=== PATIENT | female | born 1935 | race Caucasian/White ===

== ENCOUNTER 2016-06-04 12:54 | Inpatient (IN) | payer MEDICARE ==
[~2016-06-04] VITALS: Ht 157.5 cm; Wt 78.1 kg
[~2016-06-04 12:54] MED LIST: ACET500T68 PO; AMIT100T PO; ATOR20TA58 PO; CALC667C6 PO; CETI10TA16 PO; CLOP75TA PO; FENO54TA PO; FURO80TA3 PO; HYDR-2678 PO; Hydrocodone/Acetaminophen PO; INSU100I13 SQ; INSU100V SQ; LISI40TA PO; OMEP40CA5 PO; PANT40TA5 PO; VANC500V IV
[2016-06-04 14:35] VITALS: BP 184/72
[2016-06-04] MEDS ORDERED: MAG HYDROX/AL HYDROX/SIMETH 30 ML ORAL.SUSP PO PRN (15:15)
[2016-06-04] MEDS ORDERED: OXYCODONE IR 5 MG TABLET. PO PRN (15:15)
[2016-06-04] MEDS ORDERED: MORPHINE SULFATE 2 MG/ML DISP.SYRIN. IV PRN (15:15)
[2016-06-04] MEDS ORDERED: CALCIUM CARBONATE 500 MG TAB.CHEW PO PRN (15:15)
[2016-06-04] MEDS ORDERED: MAGNESIUM HYDROXIDE 2,400 MG/30 ML ORAL.SUSP. PO PRN (15:15)
[2016-06-04] MEDS ORDERED: PROCHLORPERAZINE 10 MG/2 ML VIAL. IV PRN (15:15)
[2016-06-04] MEDS ORDERED: BISACODYL 10 MG SUPP.RECT PR PRN (15:15)
[2016-06-04] MEDS ORDERED: LACTULOSE 20 GM/30 ML SOLUTION. PO PRN (15:15)
[2016-06-04] MEDS ORDERED: ONDANSETRON PF 4 MG/2 ML VIAL. IV PRN (15:15)
[2016-06-04] MEDS ORDERED: PROCHLORPERAZINE 25 MG SUPP.RECT. PR PRN (15:15)
[2016-06-04] MEDS ORDERED: AMLO10TA4 PO (15:25)
[2016-06-04] MEDS ORDERED: AZIL80TA PO (15:25)
[2016-06-04] MEDS ORDERED: DEXTROSE 50% 25 GM / 50ML DISP.SYRIN. IV PRN (15:30)
[2016-06-04] MEDS ORDERED: FLUT9.9S NS (15:32)
[2016-06-04] MEDS ORDERED: BIFI1CAP PO (15:32)
[2016-06-04] MEDS ORDERED: LEVO75TA5 PO (15:32)
[2016-06-04] MEDS ORDERED: HYDR-2868 PO (15:32)
[2016-06-04] MEDS ORDERED: FLUT1DIS3 IH (15:32)
[2016-06-04] MEDS ORDERED: ESCI10TA PO (15:32)
[2016-06-04] MEDS ORDERED: INSU100I11 SQ (15:32)
[2016-06-04] MEDS ORDERED: FOLI1TAB16 PO (15:32)
[2016-06-04] MEDS ORDERED: IPRA3AMP NEB (15:32)
[2016-06-04] MEDS ORDERED: OMEP20CA9 PO (15:32)
--- NOTE | 2016-06-04 15:50 | PDOC1 ---
History and Physical Date of Admission Date of Admission DATE: 06/04/16 TIME: 15:28 Identification/Chief Complaint Chief Complaint SOA, transfer from [place] Source Source: Chart review, Patient History of Present Illness History of Present Illness 80 y./o Female [facility] cards, She went [facility], has been on HD MWF x 10 yrs, pt of Dr. Anthony, CXR shows modest bilateral pleurale ffusion with trop of 0.11 in this HD pt, SHe denies any CP, hemodynamcially stable. Was more concerned about what sounds like her anemia, Hgb 9.8,c lzims it dropped from a 10 plus, creatinine is 3, EKG is reassuring, pt denies any sxs,. Home meds being resumed. Past Medical History Cardiovascular: CAD, HTN, Hyperlipidemia GI: Other Heme/Onc: Anemia NOS Musculoskeletal: Muscle atrophy, Weakness Renal/: Chronic renal failure Endocrine: Diabetes, Hyperparathyroidism Past Surgical History Past Surgical History: Tonsillectomy Family History Family History: No Significant Social History Smoke: No ALCOHOL: none Drugs: None Current Problem List Problem List Problems Medical Problems: (1) ESRD (end stage renal disease) Status: Acute Problems: Current Medications Current Medications Current Medications Ondansetron HCl (Zofran) 4 mg PRN Q6HRS PRN IV NAUSEA/VOMITING, 1ST CHOICE; Start 06/04/16 at 15:15 Prochlorperazine Edisylate (Compazine) 10 mg PRN Q6HRS PRN IV NAUSEA/VOMITING, 2ND CHOICE; Start 06/04/16 at 15:15 Prochlorperazine (Compazine) 25 mg PRN Q12HR PRN TX NAUSEA/VOMITING; Start at 15:15 Al Hydroxide/Mg Hydroxide (Mylanta Plus Xs) 30 ml PRN Q3HRS PRN PO HEARTBURN / GAS; Start 06/04/16 at 15:15 Calcium Carbonate/ Glycine (Tums) 500 mg PRN Q3HRS PRN PO UPSET STOMACH; Start 06/04/16 at 15:15 Oxycodone HCl (Roxicodone) 5 mg PRN Q3HRS PRN PO BREAKTHROUGH PAIN; Start 06/04 at 15:15 Morphine Sulfate 1 mg PRN Q1HR PRN IV PAIN; Start 06/04/16 at 15:15 Docusate Sodium (Colace) 100 mg BID PO ; Start 06/04/16 at 21:00 Magnesium Hydroxide (Milk Of Magnesia) 2,400 mg PRN Q12HR PRN PO CONSTIPATION; Start 06/04/16 at 15:15 Lactulose 20 gm PRN Q12HR PRN PO CONSTIPATION; Start 06/04/16 at 15:15 Bisacodyl (Dulcolax Supp) 10 mg PRN DAILY PRN TX CONSTIPATION; Start 06/04/16 at 15:15 Heparin Sodium (Porcine) 5,000 unit Q12HR SQ ; Start 06/04/16 at 21:00 Insulin Aspart (Novolog) 0-9 UNITS TIDWMEALS SQ ; Start 06/04/16 at 17:00 Dextrose 12.5 gm PRN Q15MIN PRN IV SEE COMMENTS; Start 06/04/16 at 15:30 Active Scripts Active Lortab 5-325 mg Tablet (Hydrocodone/Acetaminophen) 1 Each Tablet 1 Tab PO PRN Q6HRS PRN Reported Edarbi (Azilsartan Medoxomil) 80 Mg Tablet 80 Mg PO DAILY Norvasc (Amlodipine Besylate) 10 Mg Tablet 10 Mg PO DAILY Omeprazole 40 Mg Capsule.dr 1 Cap PO DAILY Humalog (Insulin Lispro) 100 Unit/1 Ml Vial 20 SQ TIDAC pt states she uses a sliding scale also Lantus Solostar (Insulin Glargine,Hum.rec.anlog) 100 Unit/1 Ml Insuln.pen 10 Unit SQ HS Clopidogrel (Clopidogrel Bisulfate) 75 Mg Tablet 75 Mg PO DAILY Phoslo (Calcium Acetate) 667 Mg Capsule 667 Mg PO TID Allergies Allergies: Coded Allergies: No Known Drug Allergies (Unverified , 02/22/14) ROS General: No: Appetite, Chills, Fatigue, Malaise, Night Sweats, Other PSYCHOLOGICAL ROS: No: Anxiety, Behavioral Disorder, Concentration difficultie , Decreased libido, Depression, Disorientation, Hallucinations, Hostility, Irritablity, Memory difficulties, Mood Swings, Obsessive thoughts, Other, Physical abuse, Sexual abuse, Sleep disturbances, Suicidal ideation Eyes: No Blurry vision, No Decreased vision, No Double vision, No Dry eyes, No Excessive tearing, No Eye Pain, No Itchy Eyes, No Loss of vision, No Other, No Photophobia, No Scotomata, No Uses contacts, No Uses glasses HEENT: No: Epistaxis, Heacaches, Hearing change, Nasal congestion, Nasal discharge, Oral lesions, Other, Sinus pain, Sneezing, Snoring, Sore Throat, Tinnitus, Vertigo, Visual Changes, Vocal changes ALLERGY AND IMMUNOLOGY: No: Hives, Insect Bite Sensitivity, Itchy/Watery Eyes, Nasal Congestion, Other, Post Nasal Drip, Seasonal Allergies Hematological and Lymphatic: No: Bleeding Problems, Blood Clots, Blood Transfusions, Brusing, Night Sweats, Other, Pallor, Swollen Lymph Nodes ENDOCRINE: No: Breast Changes, Galactorrhea, Hair Pattern Changes, Hot Flashes , Malaise/lethargy, Mood Swings, Other, Palpitations, Polydipsia/polyuria, Skin Changes, Temperature Intolerance, Unexpected Weight Changes Breast: No New/Changing Breast Lumps, No Nipple changes, No Nipple discharge, No Other Respiratory: YES: Shortness of breath Cardiovascular: No Chest Pain, No Edema, No Lt Headedness, No Orthopnea, No Other, No Palpitations, No Paroxysmal Noc. Dyspnea Genitourinary: No , No , No , No , No , No , No , No Discharge, No Dysuria, No Flank Pain, No Frequency, No Hematuria, No Incontinence, No Other, No Pain, No Retention, No Urgency Musculoskeletal: No Gait Disturbance, No Joint Pain, No Joint Stiffness, No Joint Swelling, No Muscle Pain, No Muscular Weakness, No Other, No Pain In:, No Swelling In: Neurological: No Behavorial Changes, No Bowel/Bladder ControlChng, No Confusion , No Dizziness, No Gait Disturbance, No Headaches, No Impaired Coord/balance, No Memory Loss, No Numbness/Tingling, No Other, No Seizures, No Speech Problems , No Tremors, No Visual Changes, No Weakness Skin: No Acne, No Dry Skin, No Eczema, No Hair Changes, No Lumps, No Mole Changes, No Mottling, No Nail Changes, No Other, No Pruritus, No Rash, No Skin Lesion Changes Physical Exam General: Alert, Oriented X3, Cooperative, No acute distress HEENT: Atraumatic, PERRLA Lungs: Clear to auscultation, Normal air movement, Other (dec BS bases, no wheezing) Heart: S1S2, RRR, no thrills, no rubs, no gallops, no murmurs Cardiovascular: S1, S2 Breasts: Normal, No suspicious masses, No skin or nipple changes, No axillary nodes Abdomen: Normal bowel sounds, Soft, No tenderness, No hepatosplenomegaly, No masses Male Genitals Exam: normal genitalia, normal prostate Rectal Exam: not examined PELVIC: Nml ext genitalia, Nml ext vulva, Nml ext vagina, Nml ext cervic, Nml ext uterus Extremities: No clubbing, No cyanosis, No edema, Normal pulses, No tenderness/ swelling Skin: No rashes, No breakdown, No significant lesion Neuro: Normal gait, Normal speech, Strength at 5/5 X4 ext, Normal tone, Sensation intact, Cranial nerves 3-12 NL, Reflexes 2+ Psych/Mental Status: Mental status NL, Mood NL VTE Prophylaxis Ordered VTE Prophylaxis Devices: Yes VTE Pharmacological Prophylaxi: Yes Assessment/Plan Assessment/Plan 1. ESRD on HD 2. SOA 3. Troponin leak in a HD pt 4. Mild PCM 5., AOCD 6. Geriatric 7, HTN PLAn: Check labs keith CXR keith Resume home meds PT/OT Trend CE Cards and renal consult Cesar RN and pt RADHA JERONIMO MD Jun 04, 2016 15:49
[2016-06-04] MEDS: CLOPIDOGREL BISULFATE 75 MG TABLET PO SCH (16:00)
[2016-06-04] MEDS ORDERED: HYDROCODONE/APAP 5/325MG TABLET. PO PRN (16:00)
[2016-06-04] MEDS: AMLODIPINE BESYLATE 10 MG TABLET PO SCH (16:00)
[2016-06-04] MEDS: FLUTICASONE 50MCG/NASAL SPRAY 16GM BOTTLE. NS SCH (16:00)
[2016-06-04] MEDS: HYDRALAZINE 25 MG TABLET PO SCH ×2 (17:00→20:10)
[2016-06-04] MEDS: ESCITALOPRAM 10 MG TABLET. PO SCH (17:00)
[2016-06-04] MEDS: INSULIN ASPART 300 UNITS/3 ML INSULN.PEN SQ SCH ×2 (17:00)
[2016-06-04] MEDS: CALCIUM ACETATE 667 MG CAPSULE PO SCH (17:01)
[2016-06-04] MEDS: FOLIC ACID 1 MG TABLET PO SCH (17:03)
[2016-06-04] MEDS: LOSARTAN POTASSIUM 50 MG TABLET. PO SCH (17:03)
[2016-06-04 19:21] VITALS: BP 169/63
[2016-06-04] MEDS: IPRATRPIUM/ALBUTEROL 0.5/2.5MG 3 ML NEBU. NEB SCH (19:48)
[2016-06-04] MEDS: BUDESONIDE 0.5 MG/2 ML NEBU NEB SCH (19:48)
[2016-06-04] MEDS: ACETAMINOPHEN 325 MG TABLET. PO SCH (20:11)
[2016-06-04] MEDS: DIPHENHYDRAMINE HCL 25 MG CAPSULE PO PRN (20:11)
[2016-06-04] MEDS: HEPARIN PF for SUB-Q USE 5,000 UNIT/0.5 ML VIAL. SQ SCH (20:17)
[2016-06-04] MEDS: INSULIN DETEMIR 300 UNITS/3 ML INSULN.PEN. SQ SCH (20:18)
[2016-06-04] MEDS ORDERED: ALPRAZOLAM 0.25 MG TABLET PO ONE (20:30)
[2016-06-04] MEDS: DOCUSATE SODIUM 100 MG CAPSULE PO SCH (21:00)
[2016-06-04 22:55] VITALS: BP 135/47
[2016-06-05 02:53] VITALS: BP 139/49
[2016-06-05 04:00] LABS: BASO % 0 % (0-3); EOS % 2 % (0-3); HEMATOCRIT 27.4 % (36.0-47.0); LYMPH # 1.2 x10^3/uL (1.0-4.8); LYMPH % 19 % (24-48); MEAN CORPUSCULAR HEMOGLOBIN 32 pg (25-35); MEAN CORPUSCULAR HGB CONC 33 g/dL (31-37); MEAN CORPUSCULAR VOLUME 97 fL (79-100); MONO % 8 % (0-9); NEUT % 71 % (31-73); PLATELET COUNT 197 x10^3/uL (140-400); RED BLOOD COUNT 2.83 x10^6/uL (3.50-5.40); RED CELL DISTRIBUTION WIDTH 14.2 % (11.5-14.5); WHITE BLOOD COUNT 6.4 x10^3/uL (4.0-11.0)
[2016-06-05 04:09] LABS: INR 1.2 (0.8-1.1); PROTHROMBIN TIME PATIENT 14.9 SEC (11.7-14.0)
[2016-06-05 04:14] LABS: CALCIUM 9.2 mg/dL (8.5-10.1); CREATININE 4.3 mg/dL (0.6-1.0); GFR 9.9; POTASSIUM 3.9 mmol/L (3.5-5.1)
[2016-06-05] MEDS: LEVOTHYROXINE 75 MCG TABLET PO SCH (06:22)
[2016-06-05 07:35] VITALS: BP 156/60
[2016-06-05] MEDS: IPRATRPIUM/ALBUTEROL 0.5/2.5MG 3 ML NEBU. NEB SCH ×5 (07:37→20:18)
[2016-06-05] MEDS: BUDESONIDE 0.5 MG/2 ML NEBU NEB SCH ×2 (07:37→20:18)
[2016-06-05] MEDS: INSULIN ASPART 300 UNITS/3 ML INSULN.PEN SQ SCH ×6 (08:00→17:00)
[2016-06-05] MEDS ORDERED: IV NORMAL SALINE 1000ML BAG 1,000 ML IV PRN (08:55)
[2016-06-05] MEDS ORDERED: DIALYSIS PATIENT. MC PRN (09:00)
[2016-06-05] MEDS ORDERED: DIPHENHYDRAMINE 50 MG/ML VIAL IV PRN ×2 (09:00)
[2016-06-05] MEDS: HEPARIN PF for SUB-Q USE 5,000 UNIT/0.5 ML VIAL. SQ SCH ×2 (09:00→22:15)
[2016-06-05] MEDS: FLUTICASONE 50MCG/NASAL SPRAY 16GM BOTTLE. NS SCH (09:00)
[2016-06-05] MEDS: ESCITALOPRAM 10 MG TABLET. PO SCH (09:00)
--- NOTE | 2016-06-05 09:05 | PDOC2 ---
VELIA NIEVES MANAGER INVENTORY MANAGEMENT 06/05/16 0904: CARDIAC CONSULT DATE OF CONSULT Date of Consult DATE: 06/05/16 TIME: 08:48 REASON FOR CONSULT Reason for Consult: elevated Troponin, CHF REFERRING PHYSICIAN Referring Physician: Yuval SOURCE Source: Chart review, Patient HISTORY OF PRESENT ILLNESS HISTORY OF PRESENT ILLNESS This is a pleasant 80 yo female admitted for complains of SOA. Reports that Friday she was not feeling good. Some SOA and positive for sensation of bloating , PND and increased leg swelling. She did sleep ok overnight and had dialysis the next day in which 1.5 KG was off loaded. Her symptoms continued and her SOA was increased. Denies any wheeze but notable for nonproductive cough. She did see Dr. Coleman that day and was given 2 breathing treatments and was better. Her SOA did persist prompting her to come to [facility]. She was then noted to have acute CHF and was eventually transferred to [facility] for further treatment and dialysis. Reports no CP, palpitations. No prior dizziness or passing out. Denies any fever chills. She did have some nausea but otherwise no vomiting or diarrhea. Nobody in her family is sick at this time. Verbalized compliance of her medications, diet, fluid intake, and no prior symptoms of hypoglycemic reaction. She did emphasized that her SBPs have been consistently in the 170s at home and was still elevated upon transfer to [facility]. She had recent TTE and stress test at [facility] seen by Dr. Downs (her senior mechanical development engineer) in 04/2016 and the results were good she said. No prior hx of CAD nor arrhythmias. PAST MEDICAL HISTORY Past Medical History Past Surgical History Past Surgical History: Tonsillectomy Family History Family History: No Significant Social History Smoke: No ALCOHOL: none Drugs: None Cardiovascular: CAD (? she denies this), CHF, HTN, Hyperlipidemia Pulmonary: No pertinent hx CENTRAL NERVOUS SYSTEM: Other (No pertinent history) GI: GERD Heme/Onc: Anemia NOS Hepatobiliary: No pertinent hx Psych: Anxiety Musculoskeletal: Osteoarthritis Rheumatologic: No pertinent hx Infectious disease: Other (MRSA 2007) ENT: No pertinent hx Renal/: Chronic renal failure (ESRD) Endocrine: Diabetes (2), Hypothyroidism, Hyperparathyroidism Dermatology: No pertinent hx PAST SURGICAL HISTORY Past Surgical History: Cholecystectomy, Tonsillectomy, Other (Right arm dialysis AV fistula placement with eventual thrombectomy and revision; right basilic vein stent placement last week) FAMILY HISTORY Family History: Coronary Artery Disease (sister) SOCIAL HISTORY Smoke: No ALCOHOL: none Drugs: None Lives: with Family CURRENT MEDICATIONS CURRENT MEDICATIONS Current Medications Medications (Trade) Dose Ordered Sig/Jcakeline Route PRN Reason Start Time Stop Time Status Last Admin Dose Admin Heparin Sodium (Porcine) 5,000 unit Q12HR SQ 06/04/16 21:00 06/04/16 20:17 Calcium Acetate (Phoslo) 667 mg TIDWMEALS PO 06/04/16 17:00 06/04/16 17:01 Escitalopram Oxalate (Lexapro) 10 mg DAILY PO 06/04/16 16:00 06/04/16 17:00 Folic Acid (Folic Acid) 1 mg DAILY PO 06/04/16 16:00 06/04/16 17:03 Hydralazine HCl (Apresoline) 25 mg TID PO 06/04/16 16:00 06/04/16 20:10 Albuterol/ Ipratropium (Duoneb) 3 ml RTQID NEB 06/04/16 16:00 06/05/16 07:37 Levothyroxine Sodium (Synthroid) 75 mcg DAILY06 PO 06/05/16 06:00 06/05/16 06:22 Losartan Potassium (Cozaar) 100 mg DAILY PO 06/04/16 16:00 06/04/16 17:03 Budesonide (Pulmicort) 0.5 mg RTBID NEB 06/04/16 20:00 06/05/16 07:37 Insulin Detemir (Levemir) 10 units QHS SQ 06/04/16 21:00 06/04/16 20:18 Diphenhydramine HCl (Benadryl) 25 mg PRN QHS PRN PO INSOMNIA 06/04/16 20:00 06/04/16 20:11 Acetaminophen (Tylenol) 650 mg HS PO 06/04/16 21:00 06/04/16 20:11 ALLERGIES ALLERGIES: Coded Allergies: No Known Drug Allergies (Unverified , 02/22/14) ROS Review of System 14 point ROS evaluated with pertinent positive noted per HPI PHYSICAL EXAM General: Alert, Oriented X3, Cooperative, No acute distress HEENT: Atraumatic, Mucous membr. moist/pink Lungs: Other (bibasilar crackles) Heart: Regular rate (SR no significant ectopies overnight), Normal S1, Normal S2, Other (2/6 systolic murmur to LLS border and ARY border) Abdomen: Soft, No tenderness Extremities: No cyanosis, Other (1+ bilateral LE edema) Skin: No breakdown, No significant lesion Neuro: Normal speech, Sensation intact Psych/Mental Status: Mental status NL, Mood NL MUSCULOSKELETAL: Full range of motion without pain, Osteoarthritic changes both hands VITALS VITALS Vital Signs Date Time Temp Pulse Resp B/P Pulse Ox O2 Delivery O2 Flow Rate FiO2 06/05/16 07:35 98.3 74 16 156/60 93 Nasal Cannula 98.3 06/05/16 07:35 2.0 LABS Lab: Laboratory Tests Test 06/04/16 18:06 06/04/16 18:15 06/04/16 20:10 06/05/16 03:12 Glucose (Fingerstick) 125mg/dL (70-99) 194mg/dL (70-99) Troponin I Quantitative 0.069ng/mL (0.000-0.055) 0.079ng/mL (0.000-0.055) White Blood Count 6.4x10^3/uL (4.0-11.0) Red Blood Count 2.83x10^6/uL (3.50-5.40) Hemoglobin 9.0g/dL (12.0-15.5) Hematocrit 27.4% (36.0-47.0) Mean Corpuscular Volume 97fL (79-100) Mean Corpuscular Hemoglobin 32pg (25-35) Mean Corpuscular Hemoglobin Concent 33g/dL (31-37) Red Cell Distribution Width 14.2% (11.5-14.5) Platelet Count 197x10^3/uL (140-400) Neutrophils (%) (Auto) 71% (31-73) Lymphocytes (%) (Auto) 19% (24-48) Monocytes (%) (Auto) 8% (0-9) Eosinophils (%) (Auto) 2% (0-3) Basophils (%) (Auto) 0% (0-3) Neutrophils # (Auto) 4.5x10^3uL (1.8-7.7) Lymphocytes # (Auto) 1.2x10^3/uL (1.0-4.8) Monocytes # (Auto) 0.5x10^3/uL (0.0-1.1) Eosinophils # (Auto) 0.1x10^3/uL (0.0-0.7) Basophils # (Auto) 0.0x10^3/uL (0.0-0.2) Prothrombin Time 14.9SEC (11.7-14.0) Prothromb Time International Ratio 1.2 (0.8-1.1) Sodium Level 144mmol/L (136-145) Potassium Level 3.9mmol/L (3.5-5.1) Chloride Level 106mmol/L (98-107) Carbon Dioxide Level 29mmol/L (21-32) Anion Gap 9 (6-14) Blood Urea Nitrogen 32mg/dL (7-20) Creatinine 4.3mg/dL (0.6-1.0) Estimated GFR (Cockcroft-Gault) 9.9 Glucose Level 105mg/dL (70-99) Calcium Level 9.2mg/dL (8.5-10.1) Test 06/05/16 07:37 Glucose (Fingerstick) 101mg/dL (70-99) ECHOCARDIOGRAM ECHOCARDIOGRAM <Conclusion> The left ventricular systolic function is normal. The Ejection Fraction is estimated at 60-65%. There is normal LV segmental wall motion. Doppler and Color Flow revealed mild mitral regurgitation. Doppler and Color Flow revealed mild tricuspid regurgitation. The PA pressure was estimated at 24 mmHg. There is no evidence of significant pericardial effusion. DATE: 07/08/14 1855 ASSESSMENT/PLAN ASSESSMENT/PLAN 1. Acute on chronic diastolic CHF: Pro NT BNP 9030. Recent TTE 04/2016. Last known EF at 60-65%. Will obtain copy. Denies missed dialysis. Suspect refractory episode likely from uncontrolled HTN. Pt is on 75 mg po tid of hydralazine at home and will increase and will add Imdur. Continue on norvasc and currently on losartan managed by nephrology. Currently clinically compensated and fluid off loading per HD in process today. Continue BP control optimization. 2. Elevated troponin: peaked at 0.11. CP free. EKG SR without acute changes. Recent MPI in 04/2016 and TTE and was noted to be good results accdg to pt. Will obtain records. Suspect demand mediated r/t CHF, HTN with underlying ESRD. Doubt ACS. Currently on plavix per vascular surgeon's preference reported by pt. Continue with secondary prevention. No further workup at this time. 3. Hx of of aortic atherosclerosis: noted via CXR in the past but no known hx of CAD. 4. HTN: labile. Med adjustment as noted above. 5. HLP: not noted on home statin. Could not tell me why it was removed. This was taken off her regimen 09/2015 by her PCP. No known adverse reactions. Recommend restart pending lipid panel. 6. DM2: last A1C at 6.6. on insulin therapy Per PCP 7. Hypothyroidism: on replacement. 8. Anemia of chronic disease: Hgb 9.0 9. ESRD: HD per nephrology 10. Hx of MRSA: in 2007. Problems: JANEL TALBERT MD 06/05/16 1614: CARDIAC CONSULT ALLERGIES ALLERGIES: Coded Allergies: No Known Drug Allergies (Unverified , 02/22/14) ASSESSMENT/PLAN ASSESSMENT/PLAN Patient seen and examined. Agree with BOX FEEDER's assessment and plan. Continue fluid removal with hemodialysis for acute on chronic diastolic heart failure. Troponin level slightly elevated probably secondary to renal insufficiency. We will obtain results of recent 2-D echo and nuclear stress test from [facility] and make further recommendations. Thank you for your consultation. Problems: VELIA NIEVES APRN Jun 05, 2016 09:04 JANEL TALBERT MD Jun 05, 2016 16:14
--- NOTE | 2016-06-05 10:31 | PDOC2 ---
CONSULT Date of Consult Date of Consult DATE: 06/05/16 TIME: 10:27 Reason for Consult Reason for Consult: ESRD Referring Physician Referring Physician: PHANI Identification/Chief Complaint Chief Complaint SOB Source Source: Chart review, Patient History of Present Illness Reason for Visit: THIS IS AN 80 YR OLD ADMITTED WITH SOB AND DX OF DIASTOLIC CHF. SHE HAS ESRD AND IS ON OP HD ON MWF. SHE IS COMPLIANT WITH HER HD. LABS ARE C/W ESRD. SHE IS ALSO ANEMIA. 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 [employer] AND STENT PLACEMENT OF THE BASILIC VEIN IN THE ARM Past Surgical History: Tonsillectomy, Other (Right arm dialysis AV fistula placement with eventual thrombectomy and revision) Family History Family History: No Significant Social History No ALCOHOL: none Drugs: None Lives: with Family Current Problem List Problem List Problems Medical Problems: (1) ESRD (end stage renal disease) Status: Acute Current Medications Current Medications Current Medications Ondansetron HCl (Zofran) 4 mg PRN Q6HRS PRN IV NAUSEA/VOMITING, 1ST CHOICE; Start 06/04/16 at 15:15 Prochlorperazine Edisylate (Compazine) 10 mg PRN Q6HRS PRN IV NAUSEA/VOMITING, 2ND CHOICE; Start 06/04/16 at 15:15 Prochlorperazine (Compazine) 25 mg PRN Q12HR PRN ID NAUSEA/VOMITING; Start at 15:15 Al Hydroxide/Mg Hydroxide (Mylanta Plus Xs) 30 ml PRN Q3HRS PRN PO HEARTBURN / GAS; Start 06/04/16 at 15:15 Calcium Carbonate/ Glycine (Tums) 500 mg PRN Q3HRS PRN PO UPSET STOMACH; Start 06/04/16 at 15:15 Oxycodone HCl (Roxicodone) 5 mg PRN Q3HRS PRN PO BREAKTHROUGH PAIN; Start 06/04 at 15:15 Morphine Sulfate 1 mg PRN Q1HR PRN IV PAIN; Start 06/04/16 at 15:15 Docusate Sodium (Colace) 100 mg BID PO ; Start 06/04/16 at 21:00 Magnesium Hydroxide (Milk Of Magnesia) 2,400 mg PRN Q12HR PRN PO CONSTIPATION; Start 06/04/16 at 15:15 Lactulose 20 gm PRN Q12HR PRN PO CONSTIPATION; Start 06/04/16 at 15:15 Bisacodyl (Dulcolax Supp) 10 mg PRN DAILY PRN ID CONSTIPATION; Start 06/04/16 at 15:15 Heparin Sodium (Porcine) 5,000 unit Q12HR SQ Last administered on 06/04/16 20: 17; Start 06/04/16 at 21:00 Insulin Aspart (Novolog) 0-9 UNITS TIDWMEALS SQ ; Start 06/04/16 at 17:00 Dextrose 12.5 gm PRN Q15MIN PRN IV SEE COMMENTS; Start 06/04/16 at 15:30 Amlodipine Besylate (Norvasc) 10 mg DAILY PO ; Start 06/04/16 at 16:00 Calcium Acetate (Phoslo) 667 mg TIDWMEALS PO Last administered on 06/04/16 17: 01; Start 06/04/16 at 17:00 Clopidogrel Bisulfate (Plavix) 75 mg DAILY PO ; Start 06/04/16 at 16:00 Escitalopram Oxalate (Lexapro) 10 mg DAILY PO Last administered on 06/04/16 17 :00; Start 06/04/16 at 16:00 Folic Acid (Folic Acid) 1 mg DAILY PO Last administered on 06/04/16 17:03; Start 06/04/16 at 16:00 Hydralazine HCl (Apresoline) 25 mg TID PO Last administered on 06/04/16 20:10 ; Start 06/04/16 at 16:00 Acetaminophen/ Hydrocodone Bitart (Lortab 5/325) 1 tab PRN Q6HRS PRN PO PAIN; Start 06/04/16 at 16:00 Albuterol/ Ipratropium (Duoneb) 3 ml RTQID NEB Last administered on 06/05/16 07:37; Start 06/04/16 at 16:00 Levothyroxine Sodium (Synthroid) 75 mcg DAILY06 PO Last administered on 06:22; Start 06/05/16 at 06:00 Losartan Potassium (Cozaar) 100 mg DAILY PO Last administered on 06/04/16 17: 03; Start 06/04/16 at 16:00 Fluticasone Propionate (Flonase) 2 spray DAILY NS ; Start 06/04/16 at 16:00 Budesonide (Pulmicort) 0.5 mg RTBID NEB Last administered on 06/05/16 07:37; Start 06/04/16 at 20:00 Insulin Detemir (Levemir) 10 units QHS SQ Last administered on 06/04/16 20:18 ; Start 06/04/16 at 21:00 Insulin Aspart (Novolog) 20 units TIDWMEALS SQ ; Start 06/04/16 at 17:00 Pantoprazole Sodium (Protonix) 40 mg DAILYAC PO ; Start 06/05/16 at 07:30 Alprazolam (Xanax) 0.25 mg 1X ONCE PO ; Start 06/04/16 at 20:30; Stop 06/04/16 at 20:31; Status DC Diphenhydramine HCl (Benadryl) 25 mg PRN QHS PRN PO INSOMNIA Last administered on 06/04/16 20:11; Start 06/04/16 at 20:00 Acetaminophen 650 mg 650 mg HS PO Last administered on 06/04/16 20:11; Start 06/04/16 at 21:00 Sodium Chloride (Iv Sodium Chloride 0.9% 1000ml Bag) 1,000 ml @ 1,000 mls/hr Q1H PRN IV hypotension; Start 06/05/16 at 08:55; Stop 06/05/16 at 14:54 Diphenhydramine HCl (Benadryl) 25 mg 1X PRN PRN IV ITCHING; Start 06/05/16 at 09:00; Stop 06/06/16 at 08:59 Diphenhydramine HCl (Benadryl) 25 mg 1X PRN PRN IV ITCHING; Start 06/05/16 at 09:00; Stop 06/06/16 at 08:59 Info (PHARMACY MONITORING -- do not chart) 1 each PRN DAILY PRN MC SEE COMMENTS ; Start 06/05/16 at 09:00 Active Scripts Active Lortab 5-325 mg Tablet (Hydrocodone/Acetaminophen) 1 Each Tablet 1 Tab PO PRN Q6HRS PRN Reported Omeprazole 20 Mg Capsule.dr 1 Cap PO DAILY Levothyroxine Sodium 75 Mcg Tablet 1 Tab PO DAILY Duoneb 0.5-3(2.5) Mg/3 Ml (Albuterol/Ipratropium) 3 Ml Ampul.neb 3 Ml NEB QID Humalog (Insulin Lispro) 100 Unit/1 Ml Insuln.pen 100 Unit SQ Hydralazine Hcl 25 Mg Tablet 1 Tab PO TID Folic Acid 1 Mg Tablet 1 Tab PO DAILY Advair 250-50 Diskus (Fluticasone/Salmeterol) 1 Each Disk.w.dev 1 Puff IH BID Flonase Allergy Relief (Fluticasone Propionate) 9.9 Ml Novice.susp 2 Sprays NS DAILY Escitalopram Oxalate 10 Mg Tablet 1 Tab PO DAILY Digestive Probiotic (Bifidobacterium Infantis) 1 Each Capsule Unknown Dose PO Edarbi (Azilsartan Medoxomil) 80 Mg Tablet 80 Mg PO DAILY Norvasc (Amlodipine Besylate) 10 Mg Tablet 10 Mg PO DAILY Humalog (Insulin Lispro) 100 Unit/1 Ml Vial 20 SQ TIDAC pt states she uses a sliding scale also Lantus Solostar (Insulin Glargine,Hum.rec.anlog) 100 Unit/1 Ml Insuln.pen 10 Unit SQ HS Clopidogrel (Clopidogrel Bisulfate) 75 Mg Tablet 75 Mg PO DAILY Phoslo (Calcium Acetate) 667 Mg Capsule 667 Mg PO TID Allergies Allergies: Coded Allergies: No Known Drug Allergies (Unverified , 02/22/14) ROS General: YES: Fatigue, Malaise PSYCHOLOGICAL ROS: YES: Anxiety Eyes: Yes Decreased vision HEENT: YES: Anne ALLERGY AND IMMUNOLOGY: YES: Hives Respiratory: YES: Cough, Orthopnea, Shortness of breath Cardiovascular: yes Orthopnea Gastrointestinal: Yes Constipation Genitourinary: YES Other (ANURIA) Musculoskeletal: Yes Muscular Weakness Neurological: Yes Weakness Skin: Yes Dry Skin Physical Exam General: Alert, Oriented X3, Cooperative, No acute distress HEENT: Atraumatic, PERRLA Lungs: Other (BASILAR RALES) Abdomen: Normal bowel sounds, Soft Extremities: No clubbing, No cyanosis Skin: No rashes, No significant lesion Neuro: Cranial nerves 3-12 NL Psych/Mental Status: Mental status NL, Mood NL MUSCULOSKELETAL: No deformity, No swelling Vitals VITALS Vital Signs Date Time Temp Pulse Resp B/P Pulse Ox O2 Delivery O2 Flow Rate FiO2 06/05/16 07:35 98.3 74 16 156/60 93 Nasal Cannula 98.3 06/05/16 07:35 2.0 Labs Labs Laboratory Tests Test 06/04/16 18:06 06/04/16 18:15 06/04/16 20:10 06/05/16 03:12 Glucose (Fingerstick) 125mg/dL (70-99) 194mg/dL (70-99) Troponin I Quantitative 0.069ng/mL (0.000-0.055) 0.079ng/mL (0.000-0.055) White Blood Count 6.4x10^3/uL (4.0-11.0) Red Blood Count 2.83x10^6/uL (3.50-5.40) Hemoglobin 9.0g/dL (12.0-15.5) Hematocrit 27.4% (36.0-47.0) Mean Corpuscular Volume 97fL (79-100) Mean Corpuscular Hemoglobin 32pg (25-35) Mean Corpuscular Hemoglobin Concent 33g/dL (31-37) Red Cell Distribution Width 14.2% (11.5-14.5) Platelet Count 197x10^3/uL (140-400) Neutrophils (%) (Auto) 71% (31-73) Lymphocytes (%) (Auto) 19% (24-48) Monocytes (%) (Auto) 8% (0-9) Eosinophils (%) (Auto) 2% (0-3) Basophils (%) (Auto) 0% (0-3) Neutrophils # (Auto) 4.5x10^3uL (1.8-7.7) Lymphocytes # (Auto) 1.2x10^3/uL (1.0-4.8) Monocytes # (Auto) 0.5x10^3/uL (0.0-1.1) Eosinophils # (Auto) 0.1x10^3/uL (0.0-0.7) Basophils # (Auto) 0.0x10^3/uL (0.0-0.2) Prothrombin Time 14.9SEC (11.7-14.0) Prothromb Time International Ratio 1.2 (0.8-1.1) Sodium Level 144mmol/L (136-145) Potassium Level 3.9mmol/L (3.5-5.1) Chloride Level 106mmol/L (98-107) Carbon Dioxide Level 29mmol/L (21-32) Anion Gap 9 (6-14) Blood Urea Nitrogen 32mg/dL (7-20) Creatinine 4.3mg/dL (0.6-1.0) Estimated GFR (Cockcroft-Gault) 9.9 Glucose Level 105mg/dL (70-99) Calcium Level 9.2mg/dL (8.5-10.1) Test 06/05/16 07:37 Glucose (Fingerstick) 101mg/dL (70-99) Laboratory Tests Test 06/04/16 18:06 06/04/16 18:15 06/04/16 20:10 06/05/16 03:12 Glucose (Fingerstick) 125mg/dL (70-99) 194mg/dL (70-99) Troponin I Quantitative 0.069ng/mL (0.000-0.055) 0.079ng/mL (0.000-0.055) White Blood Count 6.4x10^3/uL (4.0-11.0) Red Blood Count 2.83x10^6/uL (3.50-5.40) Hemoglobin 9.0g/dL (12.0-15.5) Hematocrit 27.4% (36.0-47.0) Mean Corpuscular Volume 97fL (79-100) Mean Corpuscular Hemoglobin 32pg (25-35) Mean Corpuscular Hemoglobin Concent 33g/dL (31-37) Red Cell Distribution Width 14.2% (11.5-14.5) Platelet Count 197x10^3/uL (140-400) Neutrophils (%) (Auto) 71% (31-73) Lymphocytes (%) (Auto) 19% (24-48) Monocytes (%) (Auto) 8% (0-9) Eosinophils (%) (Auto) 2% (0-3) Basophils (%) (Auto) 0% (0-3) Neutrophils # (Auto) 4.5x10^3uL (1.8-7.7) Lymphocytes # (Auto) 1.2x10^3/uL (1.0-4.8) Monocytes # (Auto) 0.5x10^3/uL (0.0-1.1) Eosinophils # (Auto) 0.1x10^3/uL (0.0-0.7) Basophils # (Auto) 0.0x10^3/uL (0.0-0.2) Prothrombin Time 14.9SEC (11.7-14.0) Prothromb Time International Ratio 1.2 (0.8-1.1) Sodium Level 144mmol/L (136-145) Potassium Level 3.9mmol/L (3.5-5.1) Chloride Level 106mmol/L (98-107) Carbon Dioxide Level 29mmol/L (21-32) Anion Gap 9 (6-14) Blood Urea Nitrogen 32mg/dL (7-20) Creatinine 4.3mg/dL (0.6-1.0) Estimated GFR (Cockcroft-Gault) 9.9 Glucose Level 105mg/dL (70-99) Calcium Level 9.2mg/dL (8.5-10.1) Test 06/05/16 07:37 Glucose (Fingerstick) 101mg/dL (70-99) Assessment/Plan Assessment/Plan IMP CHF DIASTOLIC ANEMIA ESRD DM II HTN PLAN HD TODAY UF TO [facility] C[facility] EVAL AND TX WILL FOLLOW JENARO PÉREZ MD Jun 05, 2016 10:31
[2016-06-05 11:20] LABS: CHOLESTEROL/HDL RATIO 3.2
[2016-06-05] MEDS: CALCIUM ACETATE 667 MG CAPSULE PO SCH ×3 (12:00→18:14)
[2016-06-05] MEDS: AMLODIPINE BESYLATE 10 MG TABLET PO SCH (13:27)
[2016-06-05] MEDS: PANTOPRAZOLE 40 MG TABLET. PO SCH (13:27)
[2016-06-05] MEDS: DOCUSATE SODIUM 100 MG CAPSULE PO SCH ×2 (13:28→21:00)
[2016-06-05] MEDS: HYDRALAZINE 25 MG TABLET PO SCH ×2 (13:28→22:07)
[2016-06-05] MEDS: CLOPIDOGREL BISULFATE 75 MG TABLET PO SCH (13:28)
[2016-06-05] MEDS: FOLIC ACID 1 MG TABLET PO SCH (13:29)
[2016-06-05] MEDS: LOSARTAN POTASSIUM 50 MG TABLET. PO SCH (13:32)
--- NOTE | 2016-06-05 14:01 | PDOC ---
PROGRESS NOTES Chief Complaint Chief Complaint 1. ESRD on HD 2. SOA 3. Troponin leak in a HD pt 4. Mild PCM 5. AOCD 6. Geriatric 7, HTN 8. chronic diastolic CHF History of Present Illness History of Present Illness Check labs again HD today, september in AM CXR keith Resume home meds PT/OT Vitals Vitals Vital Signs Date Time Temp Pulse Resp B/P Pulse Ox O2 Delivery O2 Flow Rate FiO2 06/05/16 13:32 74 156/60 06/05/16 12:39 Nasal Cannula 2.0 06/05/16 07:35 98.3 16 93 98.3 Physical Exam General: Alert, Oriented X3, Cooperative, No acute distress Heart: Regular rate (SR no significant ectopies overnight), Normal S1, Normal S2, Other (3/6 systolic E murmur to LLS border and ARY border) Abdomen: Soft, No tenderness Extremities: No cyanosis, Other (1+ bilateral LE edema) Skin: No breakdown, No significant lesion Labs LABS Laboratory Tests Test 06/04/16 18:06 06/04/16 18:15 06/04/16 20:10 06/05/16 03:12 Glucose (Fingerstick) 125mg/dL (70-99) 194mg/dL (70-99) Troponin I Quantitative 0.069ng/mL (0.000-0.055) 0.079ng/mL (0.000-0.055) White Blood Count 6.4x10^3/uL (4.0-11.0) Red Blood Count 2.83x10^6/uL (3.50-5.40) Hemoglobin 9.0g/dL (12.0-15.5) Hematocrit 27.4% (36.0-47.0) Mean Corpuscular Volume 97fL (79-100) Mean Corpuscular Hemoglobin 32pg (25-35) Mean Corpuscular Hemoglobin Concent 33g/dL (31-37) Red Cell Distribution Width 14.2% (11.5-14.5) Platelet Count 197x10^3/uL (140-400) Neutrophils (%) (Auto) 71% (31-73) Lymphocytes (%) (Auto) 19% (24-48) Monocytes (%) (Auto) 8% (0-9) Eosinophils (%) (Auto) 2% (0-3) Basophils (%) (Auto) 0% (0-3) Neutrophils # (Auto) 4.5x10^3uL (1.8-7.7) Lymphocytes # (Auto) 1.2x10^3/uL (1.0-4.8) Monocytes # (Auto) 0.5x10^3/uL (0.0-1.1) Eosinophils # (Auto) 0.1x10^3/uL (0.0-0.7) Basophils # (Auto) 0.0x10^3/uL (0.0-0.2) Prothrombin Time 14.9SEC (11.7-14.0) Prothromb Time International Ratio 1.2 (0.8-1.1) Sodium Level 144mmol/L (136-145) Potassium Level 3.9mmol/L (3.5-5.1) Chloride Level 106mmol/L (98-107) Carbon Dioxide Level 29mmol/L (21-32) Anion Gap 9 (6-14) Blood Urea Nitrogen 32mg/dL (7-20) Creatinine 4.3mg/dL (0.6-1.0) Estimated GFR (Cockcroft-Gault) 9.9 Glucose Level 105mg/dL (70-99) Calcium Level 9.2mg/dL (8.5-10.1) Phosphorus Level 4.0mg/dL (2.6-4.7) Magnesium Level 2.0mg/dL (1.8-2.4) Triglycerides Level 89mg/dL (0-150) Cholesterol Level 168mg/dL (0-200) LDL Cholesterol, Calculated 98mg/dL (0-100) VLDL Cholesterol, Calculated 18mg/dL (0-40) HDL Cholesterol 52mg/dL (40-60) Cholesterol/HDL Ratio 3.2 Test 06/05/16 07:37 Glucose (Fingerstick) 101mg/dL (70-99) Review of Systems Review of Systems dyspnea improved after HD cont current Assessment and Plan Assessmemt and Plan Problems Medical Problems: (1) ESRD (end stage renal disease) Status: Acute Problems: Comment Review of Relevant I have reviewed the following items manolo (where applicable) has been applied. Labs Laboratory Tests Test 06/04/16 18:06 06/04/16 18:15 06/04/16 20:10 06/05/16 03:12 Glucose (Fingerstick) 125mg/dL (70-99) 194mg/dL (70-99) Troponin I Quantitative 0.069ng/mL (0.000-0.055) 0.079ng/mL (0.000-0.055) White Blood Count 6.4x10^3/uL (4.0-11.0) Red Blood Count 2.83x10^6/uL (3.50-5.40) Hemoglobin 9.0g/dL (12.0-15.5) Hematocrit 27.4% (36.0-47.0) Mean Corpuscular Volume 97fL (79-100) Mean Corpuscular Hemoglobin 32pg (25-35) Mean Corpuscular Hemoglobin Concent 33g/dL (31-37) Red Cell Distribution Width 14.2% (11.5-14.5) Platelet Count 197x10^3/uL (140-400) Neutrophils (%) (Auto) 71% (31-73) Lymphocytes (%) (Auto) 19% (24-48) Monocytes (%) (Auto) 8% (0-9) Eosinophils (%) (Auto) 2% (0-3) Basophils (%) (Auto) 0% (0-3) Neutrophils # (Auto) 4.5x10^3uL (1.8-7.7) Lymphocytes # (Auto) 1.2x10^3/uL (1.0-4.8) Monocytes # (Auto) 0.5x10^3/uL (0.0-1.1) Eosinophils # (Auto) 0.1x10^3/uL (0.0-0.7) Basophils # (Auto) 0.0x10^3/uL (0.0-0.2) Prothrombin Time 14.9SEC (11.7-14.0) Prothromb Time International Ratio 1.2 (0.8-1.1) Sodium Level 144mmol/L (136-145) Potassium Level 3.9mmol/L (3.5-5.1) Chloride Level 106mmol/L (98-107) Carbon Dioxide Level 29mmol/L (21-32) Anion Gap 9 (6-14) Blood Urea Nitrogen 32mg/dL (7-20) Creatinine 4.3mg/dL (0.6-1.0) Estimated GFR (Cockcroft-Gault) 9.9 Glucose Level 105mg/dL (70-99) Calcium Level 9.2mg/dL (8.5-10.1) Phosphorus Level 4.0mg/dL (2.6-4.7) Magnesium Level 2.0mg/dL (1.8-2.4) Triglycerides Level 89mg/dL (0-150) Cholesterol Level 168mg/dL (0-200) LDL Cholesterol, Calculated 98mg/dL (0-100) VLDL Cholesterol, Calculated 18mg/dL (0-40) HDL Cholesterol 52mg/dL (40-60) Cholesterol/HDL Ratio 3.2 Test 06/05/16 07:37 Glucose (Fingerstick) 101mg/dL (70-99) Laboratory Tests Test 06/04/16 18:06 06/04/16 18:15 06/04/16 20:10 06/05/16 03:12 Glucose (Fingerstick) 125mg/dL (70-99) 194mg/dL (70-99) Troponin I Quantitative 0.069ng/mL (0.000-0.055) 0.079ng/mL (0.000-0.055) White Blood Count 6.4x10^3/uL (4.0-11.0) Red Blood Count 2.83x10^6/uL (3.50-5.40) Hemoglobin 9.0g/dL (12.0-15.5) Hematocrit 27.4% (36.0-47.0) Mean Corpuscular Volume 97fL (79-100) Mean Corpuscular Hemoglobin 32pg (25-35) Mean Corpuscular Hemoglobin Concent 33g/dL (31-37) Red Cell Distribution Width 14.2% (11.5-14.5) Platelet Count 197x10^3/uL (140-400) Neutrophils (%) (Auto) 71% (31-73) Lymphocytes (%) (Auto) 19% (24-48) Monocytes (%) (Auto) 8% (0-9) Eosinophils (%) (Auto) 2% (0-3) Basophils (%) (Auto) 0% (0-3) Neutrophils # (Auto) 4.5x10^3uL (1.8-7.7) Lymphocytes # (Auto) 1.2x10^3/uL (1.0-4.8) Monocytes # (Auto) 0.5x10^3/uL (0.0-1.1) Eosinophils # (Auto) 0.1x10^3/uL (0.0-0.7) Basophils # (Auto) 0.0x10^3/uL (0.0-0.2) Prothrombin Time 14.9SEC (11.7-14.0) Prothromb Time International Ratio 1.2 (0.8-1.1) Sodium Level 144mmol/L (136-145) Potassium Level 3.9mmol/L (3.5-5.1) Chloride Level 106mmol/L (98-107) Carbon Dioxide Level 29mmol/L (21-32) Anion Gap 9 (6-14) Blood Urea Nitrogen 32mg/dL (7-20) Creatinine 4.3mg/dL (0.6-1.0) Estimated GFR (Cockcroft-Gault) 9.9 Glucose Level 105mg/dL (70-99) Calcium Level 9.2mg/dL (8.5-10.1) Phosphorus Level 4.0mg/dL (2.6-4.7) Magnesium Level 2.0mg/dL (1.8-2.4) Triglycerides Level 89mg/dL (0-150) Cholesterol Level 168mg/dL (0-200) LDL Cholesterol, Calculated 98mg/dL (0-100) VLDL Cholesterol, Calculated 18mg/dL (0-40) HDL Cholesterol 52mg/dL (40-60) Cholesterol/HDL Ratio 3.2 Test 06/05/16 07:37 Glucose (Fingerstick) 101mg/dL (70-99) Medications Current Medications Ondansetron HCl (Zofran) 4 mg PRN Q6HRS PRN IV NAUSEA/VOMITING, 1ST CHOICE; Start 06/04/16 at 15:15 Prochlorperazine Edisylate (Compazine) 10 mg PRN Q6HRS PRN IV NAUSEA/VOMITING, 2ND CHOICE; Start 06/04/16 at 15:15 Prochlorperazine (Compazine) 25 mg PRN Q12HR PRN IA NAUSEA/VOMITING; Start at 15:15 Al Hydroxide/Mg Hydroxide (Mylanta Plus Xs) 30 ml PRN Q3HRS PRN PO HEARTBURN / GAS; Start 06/04/16 at 15:15 Calcium Carbonate/ Glycine (Tums) 500 mg PRN Q3HRS PRN PO UPSET STOMACH; Start 06/04/16 at 15:15 Oxycodone HCl (Roxicodone) 5 mg PRN Q3HRS PRN PO BREAKTHROUGH PAIN; Start 06/04 at 15:15 Morphine Sulfate 1 mg PRN Q1HR PRN IV PAIN; Start 06/04/16 at 15:15 Docusate Sodium (Colace) 100 mg BID PO Last administered on 06/05/16 13:28; Start 06/04/16 at 21:00 Magnesium Hydroxide (Milk Of Magnesia) 2,400 mg PRN Q12HR PRN PO CONSTIPATION; Start 06/04/16 at 15:15 Lactulose 20 gm PRN Q12HR PRN PO CONSTIPATION; Start 06/04/16 at 15:15 Bisacodyl (Dulcolax Supp) 10 mg PRN DAILY PRN IA CONSTIPATION; Start 06/04/16 at 15:15 Heparin Sodium (Porcine) 5,000 unit Q12HR SQ Last administered on 06/04/16 20: 17; Start 06/04/16 at 21:00 Insulin Aspart (Novolog) 0-9 UNITS TIDWMEALS SQ ; Start 06/04/16 at 17:00 Dextrose 12.5 gm PRN Q15MIN PRN IV SEE COMMENTS; Start 06/04/16 at 15:30 Amlodipine Besylate (Norvasc) 10 mg DAILY PO Last administered on 06/05/16 13: 27; Start 06/04/16 at 16:00 Calcium Acetate (Phoslo) 667 mg TIDWMEALS PO Last administered on 06/05/16 13: 26; Start 06/04/16 at 17:00 Clopidogrel Bisulfate (Plavix) 75 mg DAILY PO Last administered on 06/05/16 13 :28; Start 06/04/16 at 16:00 Escitalopram Oxalate (Lexapro) 10 mg DAILY PO Last administered on 06/04/16 17 :00; Start 06/04/16 at 16:00 Folic Acid (Folic Acid) 1 mg DAILY PO Last administered on 06/05/16 13:29; Start 06/04/16 at 16:00 Hydralazine HCl (Apresoline) 25 mg TID PO Last administered on 06/04/16 20:10 ; Start 06/04/16 at 16:00; Stop 06/05/16 at 10:43; Status DC Acetaminophen/ Hydrocodone Bitart (Lortab 5/325) 1 tab PRN Q6HRS PRN PO PAIN; Start 06/04/16 at 16:00 Albuterol/ Ipratropium (Duoneb) 3 ml RTQID NEB Last administered on 06/05/16 12:38; Start 06/04/16 at 16:00 Levothyroxine Sodium (Synthroid) 75 mcg DAILY06 PO Last administered on 06:22; Start 06/05/16 at 06:00 Losartan Potassium (Cozaar) 100 mg DAILY PO Last administered on 06/05/16 13: 32; Start 06/04/16 at 16:00 Fluticasone Propionate (Flonase) 2 spray DAILY NS ; Start 06/04/16 at 16:00 Budesonide (Pulmicort) 0.5 mg RTBID NEB Last administered on 06/05/16 07:37; Start 06/04/16 at 20:00 Insulin Detemir (Levemir) 10 units QHS SQ Last administered on 06/04/16 20:18 ; Start 06/04/16 at 21:00 Insulin Aspart (Novolog) 20 units TIDWMEALS SQ ; Start 06/04/16 at 17:00 Pantoprazole Sodium (Protonix) 40 mg DAILYAC PO Last administered on 06/05/16 13:27; Start 06/05/16 at 07:30 Alprazolam (Xanax) 0.25 mg 1X ONCE PO ; Start 06/04/16 at 20:30; Stop 06/04/16 at 20:31; Status DC Diphenhydramine HCl (Benadryl) 25 mg PRN QHS PRN PO INSOMNIA Last administered on 06/04/16 20:11; Start 06/04/16 at 20:00 Acetaminophen 650 mg 650 mg HS PO Last administered on 06/04/16 20:11; Start 06/04/16 at 21:00 Sodium Chloride (Iv Sodium Chloride 0.9% 1000ml Bag) 1,000 ml @ 1,000 mls/hr Q1H PRN IV hypotension; Start 06/05/16 at 08:55; Stop 06/05/16 at 14:54 Diphenhydramine HCl (Benadryl) 25 mg 1X PRN PRN IV ITCHING; Start 06/05/16 at 09:00; Stop 06/06/16 at 08:59 Diphenhydramine HCl (Benadryl) 25 mg 1X PRN PRN IV ITCHING; Start 06/05/16 at 09:00; Stop 06/06/16 at 08:59 Info (PHARMACY MONITORING -- do not chart) 1 each PRN DAILY PRN MC SEE COMMENTS ; Start 06/05/16 at 09:00 Darbepoetin Jani (Aranesp) 60 mcg We SQ ; Start 06/05/16 at 21:00 Hydralazine HCl (Apresoline) 100 mg TID PO Last administered on 06/05/16 13:28 ; Start 06/05/16 at 14:00 Isosorbide Mononitrate (Imdur) 30 mg DAILY PO ; Start 06/05/16 at 11:00 Active Scripts Active Lortab 5-325 mg Tablet (Hydrocodone/Acetaminophen) 1 Each Tablet 1 Tab PO PRN Q6HRS PRN Reported Omeprazole 20 Mg Capsule.dr 1 Cap PO DAILY Levothyroxine Sodium 75 Mcg Tablet 1 Tab PO DAILY Duoneb 0.5-3(2.5) Mg/3 Ml (Albuterol/Ipratropium) 3 Ml Ampul.neb 3 Ml NEB QID Humalog (Insulin Lispro) 100 Unit/1 Ml Insuln.pen 100 Unit SQ Hydralazine Hcl 25 Mg Tablet 1 Tab PO TID Folic Acid 1 Mg Tablet 1 Tab PO DAILY Advair 250-50 Diskus (Fluticasone/Salmeterol) 1 Each Disk.w.dev 1 Puff IH BID Flonase Allergy Relief (Fluticasone Propionate) 9.9 Ml Hooks.susp 2 Sprays NS DAILY Escitalopram Oxalate 10 Mg Tablet 1 Tab PO DAILY Digestive Probiotic (Bifidobacterium Infantis) 1 Each Capsule Unknown Dose PO Edarbi (Azilsartan Medoxomil) 80 Mg Tablet 80 Mg PO DAILY Norvasc (Amlodipine Besylate) 10 Mg Tablet 10 Mg PO DAILY Humalog (Insulin Lispro) 100 Unit/1 Ml Vial 20 SQ TIDAC pt states she uses a sliding scale also Lantus Solostar (Insulin Glargine,Hum.rec.anlog) 100 Unit/1 Ml Insuln.pen 10 Unit SQ HS Clopidogrel (Clopidogrel Bisulfate) 75 Mg Tablet 75 Mg PO DAILY Phoslo (Calcium Acetate) 667 Mg Capsule 667 Mg PO TID Vitals/I & O Vital Sign - Last 24 Hours 06/04/16 06/04/16 06/04/16 06/04/16 14:35 15:50 17:00 17:03 Temp 97.5 97.5 Pulse 88 88 88 Resp 18 B/P 184/72 184/72 184/72 Pulse Ox 96 O2 Delivery Nasal Cannula Nasal Cannula O2 Flow Rate 2.0 2.0 06/04/16 06/04/16 06/04/16 06/04/16 19:21 19:50 19:58 20:10 Temp 97.9 97.9 Pulse 85 85 Resp 20 B/P 169/63 169/63 Pulse Ox 91 96 O2 Delivery Nasal Cannula Nasal Cannula Nasal Cannula O2 Flow Rate 2.0 2.0 2.0 06/04/16 06/05/16 06/05/16 06/05/16 22:55 02:53 07:35 07:35 Temp 98.5 98.1 98.3 98.5 98.1 98.3 Pulse 71 68 74 Resp 18 16 16 B/P 135/47 139/49 156/60 Pulse Ox 95 97 91 93 O2 Delivery Nasal Cannula Nasal Cannula Nasal Cannula Nasal Cannula O2 Flow Rate 2.0 2.0 2.0 06/05/16 06/05/16 06/05/16 06/05/16 12:39 13:27 13:28 13:32 Pulse 74 74 74 B/P 156/60 156/60 156/60 O2 Delivery Nasal Cannula O2 Flow Rate 2.0 Intake and Output 06/04/16 06/04/16 06/05/16 15:00 23:00 07:00 Intake Total 200 ml 100 ml Balance 200 ml 100 ml SAMIA MARTINEZ MD Jun 05, 2016 14:01
--- NOTE | 2016-06-05 14:19 | EKG ---
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
[2016-06-05 15:21] VITALS: BP 178/51
[2016-06-05] MEDS: ISOSORBIDE MONONITRATE ER 30 MG TAB.ER.24H PO SCH (16:17)
[2016-06-05 19:00] VITALS: BP 148/70
[2016-06-05] MEDS ORDERED: DARBEPOETIN ALFA 60 MCG/0.3 ML DISP.SYRIN. SQ SCH (21:00)
[2016-06-05] MEDS: DIPHENHYDRAMINE HCL 25 MG CAPSULE PO PRN (22:06)
[2016-06-05] MEDS: ACETAMINOPHEN 325 MG TABLET. PO SCH (22:07)
[2016-06-05] MEDS: INSULIN DETEMIR 300 UNITS/3 ML INSULN.PEN. SQ SCH (22:16)
[2016-06-05 23:00] VITALS: BP 149/55
[2016-06-06 03:00] VITALS: BP 147/60
[2016-06-06] MEDS: LEVOTHYROXINE 75 MCG TABLET PO SCH (06:26)
[2016-06-06 07:00] VITALS: BP 159/50
[2016-06-06] MEDS: IPRATRPIUM/ALBUTEROL 0.5/2.5MG 3 ML NEBU. NEB SCH ×2 (07:20→11:01)
[2016-06-06] MEDS: BUDESONIDE 0.5 MG/2 ML NEBU NEB SCH (07:20)
--- NOTE | 2016-06-06 07:33 | RAD ---
Chest, 2 views, 06/05/2016: History: Shortness of breath No previous chest radiographs are available at this time for comparison purposes. The heart size is normal. There is calcific plaquing of the aorta. There are small to moderate-sized bilateral pleural effusions. There is moderate underlying streaky bibasilar atelectasis. A component of pneumonia cannot be excluded. The upper lung flores are clear. Scattered degenerative changes are present in the spine. IMPRESSION: Small to moderate-sized bilateral pleural effusions with moderate underlying bibasilar atelectasis.
[2016-06-06] MEDS: PANTOPRAZOLE 40 MG TABLET. PO SCH (07:48)
[2016-06-06] MEDS: INSULIN ASPART 300 UNITS/3 ML INSULN.PEN SQ SCH ×3 (08:00→12:00)
[2016-06-06 08:14] VITALS: BP 159/50
[2016-06-06] MEDS: CALCIUM ACETATE 667 MG CAPSULE PO SCH ×2 (08:41→12:17)
[2016-06-06] MEDS: DOCUSATE SODIUM 100 MG CAPSULE PO SCH (08:41)
[2016-06-06] MEDS: AMLODIPINE BESYLATE 10 MG TABLET PO SCH (08:43)
[2016-06-06] MEDS: FOLIC ACID 1 MG TABLET PO SCH (08:43)
[2016-06-06] MEDS: ISOSORBIDE MONONITRATE ER 30 MG TAB.ER.24H PO SCH (08:43)
[2016-06-06] MEDS: CLOPIDOGREL BISULFATE 75 MG TABLET PO SCH (08:43)
[2016-06-06] MEDS: LOSARTAN POTASSIUM 50 MG TABLET. PO SCH (08:44)
[2016-06-06] MEDS: HYDRALAZINE 25 MG TABLET PO SCH ×2 (08:45→14:12)
[2016-06-06] MEDS: HEPARIN PF for SUB-Q USE 5,000 UNIT/0.5 ML VIAL. SQ SCH (08:50)
[2016-06-06] MEDS: FLUTICASONE 50MCG/NASAL SPRAY 16GM BOTTLE. NS SCH ×2 (09:00→12:21)
[2016-06-06] MEDS: ESCITALOPRAM 10 MG TABLET. PO SCH (09:00)
--- NOTE | 2016-06-06 10:05 | PDOC ---
PROGRESS NOTES Chief Complaint Chief Complaint 1. ESRD, on HD 2. SOA 3. Troponin leak in a HD pt 4. Mild PCM 5. AOCD 6. Geriatric 7, HTN 8. chronic diastolic CHF History of Present Illness History of Present Illness 6 min walk, try to DC later HD today, try to DC CXR keith Resume home meds Vitals Vitals Vital Signs Date Time Temp Pulse Resp B/P Pulse Ox O2 Delivery O2 Flow Rate FiO2 06/06/16 08:45 71 159/50 06/06/16 08:14 98.2 16 96 Nasal Cannula 98.2 06/06/16 07:24 1.0 Physical Exam General: Alert, Oriented X3, Cooperative, No acute distress Heart: Regular rate (SR no significant ectopies overnight), Normal S1, Normal S2, Other (3/6 systolic E murmur to LLS border and ARY border) Abdomen: Soft, No tenderness Extremities: No cyanosis, Other (1+ bilateral LE edema) Skin: No breakdown, No significant lesion Labs LABS Laboratory Tests Test 06/05/16 17:31 06/05/16 20:43 06/06/16 08:17 Glucose (Fingerstick) 185mg/dL (70-99) 185mg/dL (70-99) 113mg/dL (70-99) Assessment and Plan Assessmemt and Plan 6 min walk try to DC home, fYessiu DR. Downs for Aortic valve murmur, mild CHF Problems Medical Problems: (1) ESRD (end stage renal disease) Status: Acute Problems: Comment Review of Relevant I have reviewed the following items manolo (where applicable) has been applied. Labs Laboratory Tests Test 06/04/16 18:06 06/04/16 18:15 06/04/16 20:10 06/05/16 03:12 Glucose (Fingerstick) 125mg/dL (70-99) 194mg/dL (70-99) Troponin I Quantitative 0.069ng/mL (0.000-0.055) 0.079ng/mL (0.000-0.055) White Blood Count 6.4x10^3/uL (4.0-11.0) Red Blood Count 2.83x10^6/uL (3.50-5.40) Hemoglobin 9.0g/dL (12.0-15.5) Hematocrit 27.4% (36.0-47.0) Mean Corpuscular Volume 97fL (79-100) Mean Corpuscular Hemoglobin 32pg (25-35) Mean Corpuscular Hemoglobin Concent 33g/dL (31-37) Red Cell Distribution Width 14.2% (11.5-14.5) Platelet Count 197x10^3/uL (140-400) Neutrophils (%) (Auto) 71% (31-73) Lymphocytes (%) (Auto) 19% (24-48) Monocytes (%) (Auto) 8% (0-9) Eosinophils (%) (Auto) 2% (0-3) Basophils (%) (Auto) 0% (0-3) Neutrophils # (Auto) 4.5x10^3uL (1.8-7.7) Lymphocytes # (Auto) 1.2x10^3/uL (1.0-4.8) Monocytes # (Auto) 0.5x10^3/uL (0.0-1.1) Eosinophils # (Auto) 0.1x10^3/uL (0.0-0.7) Basophils # (Auto) 0.0x10^3/uL (0.0-0.2) Prothrombin Time 14.9SEC (11.7-14.0) Prothromb Time International Ratio 1.2 (0.8-1.1) Sodium Level 144mmol/L (136-145) Potassium Level 3.9mmol/L (3.5-5.1) Chloride Level 106mmol/L (98-107) Carbon Dioxide Level 29mmol/L (21-32) Anion Gap 9 (6-14) Blood Urea Nitrogen 32mg/dL (7-20) Creatinine 4.3mg/dL (0.6-1.0) Estimated GFR (Cockcroft-Gault) 9.9 Glucose Level 105mg/dL (70-99) Calcium Level 9.2mg/dL (8.5-10.1) Phosphorus Level 4.0mg/dL (2.6-4.7) Magnesium Level 2.0mg/dL (1.8-2.4) Triglycerides Level 89mg/dL (0-150) Cholesterol Level 168mg/dL (0-200) LDL Cholesterol, Calculated 98mg/dL (0-100) VLDL Cholesterol, Calculated 18mg/dL (0-40) HDL Cholesterol 52mg/dL (40-60) Cholesterol/HDL Ratio 3.2 Test 06/05/16 07:37 06/05/16 17:31 06/05/16 20:43 06/06/16 08:17 Glucose (Fingerstick) 101mg/dL (70-99) 185mg/dL (70-99) 185mg/dL (70-99) 113mg/dL (70-99) Laboratory Tests Test 06/05/16 17:31 06/05/16 20:43 06/06/16 08:17 Glucose (Fingerstick) 185mg/dL (70-99) 185mg/dL (70-99) 113mg/dL (70-99) Medications Current Medications Ondansetron HCl (Zofran) 4 mg PRN Q6HRS PRN IV NAUSEA/VOMITING, 1ST CHOICE; Start 06/04/16 at 15:15 Prochlorperazine Edisylate (Compazine) 10 mg PRN Q6HRS PRN IV NAUSEA/VOMITING, 2ND CHOICE; Start 06/04/16 at 15:15 Prochlorperazine (Compazine) 25 mg PRN Q12HR PRN AR NAUSEA/VOMITING; Start at 15:15 Al Hydroxide/Mg Hydroxide (Mylanta Plus Xs) 30 ml PRN Q3HRS PRN PO HEARTBURN / GAS; Start 06/04/16 at 15:15 Calcium Carbonate/ Glycine (Tums) 500 mg PRN Q3HRS PRN PO UPSET STOMACH; Start 06/04/16 at 15:15 Oxycodone HCl (Roxicodone) 5 mg PRN Q3HRS PRN PO BREAKTHROUGH PAIN; Start 06/04 at 15:15 Morphine Sulfate 1 mg PRN Q1HR PRN IV PAIN; Start 06/04/16 at 15:15 Docusate Sodium (Colace) 100 mg BID PO Last administered on 06/06/16t 08:41; Start 06/04/16 at 21:00 Magnesium Hydroxide (Milk Of Magnesia) 2,400 mg PRN Q12HR PRN PO CONSTIPATION; Start 06/04/16 at 15:15; Stop 06/06/16 at 08:42; Status DC Lactulose 20 gm PRN Q12HR PRN PO CONSTIPATION; Start 06/04/16 at 15:15 Bisacodyl (Dulcolax Supp) 10 mg PRN DAILY PRN AR CONSTIPATION; Start 06/04/16 at 15:15 Heparin Sodium (Porcine) 5,000 unit Q12HR SQ Last administered on 06/06/16 08: 50; Start 06/04/16 at 21:00 Insulin Aspart (Novolog) 0-9 UNITS TIDWMEALS SQ Last administered on 06/05/16 17:00; Start 06/04/16 at 17:00 Dextrose 12.5 gm PRN Q15MIN PRN IV SEE COMMENTS; Start 06/04/16 at 15:30 Amlodipine Besylate (Norvasc) 10 mg DAILY PO Last administered on 06/06/16 08: 43; Start 06/04/16 at 16:00 Calcium Acetate (Phoslo) 667 mg TIDWMEALS PO Last administered on 06/06/16 08: 41; Start 06/04/16 at 17:00 Clopidogrel Bisulfate (Plavix) 75 mg DAILY PO Last administered on 06/06/16 08 :43; Start 06/04/16 at 16:00 Escitalopram Oxalate (Lexapro) 10 mg DAILY PO Last administered on 06/04/16 17 :00; Start 06/04/16 at 16:00 Folic Acid (Folic Acid) 1 mg DAILY PO Last administered on 06/06/16 08:43; Start 06/04/16 at 16:00 Hydralazine HCl (Apresoline) 25 mg TID PO Last administered on 06/04/16 20:10 ; Start 06/04/16 at 16:00; Stop 06/05/16 at 10:43; Status DC Acetaminophen/ Hydrocodone Bitart (Lortab 5/325) 1 tab PRN Q6HRS PRN PO PAIN; Start 06/04/16 at 16:00 Albuterol/ Ipratropium (Duoneb) 3 ml RTQID NEB Last administered on 06/06/16 07:20; Start 06/04/16 at 16:00 Levothyroxine Sodium (Synthroid) 75 mcg DAILY06 PO Last administered on 06:26; Start 06/05/16 at 06:00 Losartan Potassium (Cozaar) 100 mg DAILY PO Last administered on 06/06/16 08: 44; Start 06/04/16 at 16:00 Fluticasone Propionate (Flonase) 2 spray DAILY NS ; Start 06/04/16 at 16:00 Budesonide (Pulmicort) 0.5 mg RTBID NEB Last administered on 06/06/16 07:20; Start 06/04/16 at 20:00 Insulin Detemir (Levemir) 10 units QHS SQ Last administered on 06/05/16 22:16 ; Start 06/04/16 at 21:00 Insulin Aspart (Novolog) 20 units TIDWMEALS SQ ; Start 06/04/16 at 17:00 Pantoprazole Sodium (Protonix) 40 mg DAILYAC PO Last administered on 06/06/16 07:48; Start 06/05/16 at 07:30 Alprazolam (Xanax) 0.25 mg 1X ONCE PO ; Start 06/04/16 at 20:30; Stop 06/04/16 at 20:31; Status DC Diphenhydramine HCl (Benadryl) 25 mg PRN QHS PRN PO INSOMNIA Last administered on 06/05/16 22:06; Start 06/04/16 at 20:00 Acetaminophen 650 mg 650 mg HS PO Last administered on 06/05/16 22:07; Start 06/04/16 at 21:00 Sodium Chloride (Iv Sodium Chloride 0.9% 1000ml Bag) 1,000 ml @ 1,000 mls/hr Q1H PRN IV hypotension; Start 06/05/16 at 08:55; Stop 06/05/16 at 14:54; Status DC Diphenhydramine HCl (Benadryl) 25 mg 1X PRN PRN IV ITCHING; Start 06/05/16 at 09:00; Stop 06/06/16 at 08:59; Status DC Diphenhydramine HCl (Benadryl) 25 mg 1X PRN PRN IV ITCHING; Start 06/05/16 at 09:00; Stop 06/06/16 at 08:59; Status DC Info (PHARMACY MONITORING -- do not chart) 1 each PRN DAILY PRN MC SEE COMMENTS ; Start 06/05/16 at 09:00 Darbepoetin Jani (Aranesp) 60 mcg We SQ Last administered on 06/05/16 22:10; Start 06/05/16 at 21:00 Hydralazine HCl (Apresoline) 100 mg TID PO Last administered on 06/06/16 08:45 ; Start 06/05/16 at 14:00 Isosorbide Mononitrate (Imdur) 30 mg DAILY PO Last administered on 06/06/16 08 :43; Start 06/05/16 at 11:00 Nystatin 5 ml [id number] ; Start 06/06/16 at 13:00; Status UNV Active Scripts Active Lortab 5-325 mg Tablet (Hydrocodone/Acetaminophen) 1 Each Tablet 1 Tab PO PRN Q6HRS PRN Reported Omeprazole 20 Mg Capsule.dr 1 Cap PO DAILY Levothyroxine Sodium 75 Mcg Tablet 1 Tab PO DAILY Duoneb 0.5-3(2.5) Mg/3 Ml (Albuterol/Ipratropium) 3 Ml Ampul.neb 3 Ml NEB QID Humalog (Insulin Lispro) 100 Unit/1 Ml Insuln.pen 100 Unit SQ Hydralazine Hcl 25 Mg Tablet 1 Tab PO TID Folic Acid 1 Mg Tablet 1 Tab PO DAILY Advair 250-50 Diskus (Fluticasone/Salmeterol) 1 Each Disk.w.dev 1 Puff IH BID Flonase Allergy Relief (Fluticasone Propionate) 9.9 Ml Bernard.susp 2 Sprays NS DAILY Escitalopram Oxalate 10 Mg Tablet 1 Tab PO DAILY Digestive Probiotic (Bifidobacterium Infantis) 1 Each Capsule Unknown Dose PO Edarbi (Azilsartan Medoxomil) 80 Mg Tablet 80 Mg PO DAILY Norvasc (Amlodipine Besylate) 10 Mg Tablet 10 Mg PO DAILY Humalog (Insulin Lispro) 100 Unit/1 Ml Vial 20 SQ TIDAC pt states she uses a sliding scale also Lantus Solostar (Insulin Glargine,Hum.rec.anlog) 100 Unit/1 Ml Insuln.pen 10 Unit SQ HS Clopidogrel (Clopidogrel Bisulfate) 75 Mg Tablet 75 Mg PO DAILY Phoslo (Calcium Acetate) 667 Mg Capsule 667 Mg PO TID Vitals/I & O Vital Sign - Last 24 Hours 06/05/16 06/05/16 06/05/16 06/05/16 12:39 13:27 13:28 13:32 Pulse 74 74 74 B/P 156/60 156/60 156/60 O2 Delivery Nasal Cannula O2 Flow Rate 2.0 06/05/16 06/05/16 06/05/16 06/05/16 15:21 16:09 16:17 19:00 Temp 98.0 97.8 98.0 97.8 Pulse 78 78 75 Resp 20 18 B/P 178/51 178/51 148/70 Pulse Ox 90 94 O2 Delivery Nasal Cannula Nasal Cannula Nasal Cannula O2 Flow Rate 2.0 2.0 06/05/16 06/05/16 06/05/16 06/05/16 19:40 20:16 22:07 23:00 Temp 98.0 98.0 Pulse 75 73 Resp 20 B/P 148/70 149/55 Pulse Ox 98 96 O2 Delivery Nasal Cannula Nasal Cannula Nasal Cannula O2 Flow Rate 2.0 2.0 2.0 06/06/16 06/06/16 06/06/16 06/06/16 03:00 07:00 07:22 07:24 Temp 98.2 98.2 Pulse 65 68 Resp 20 B/P 147/60 159/50 Pulse Ox 97 O2 Delivery Nasal Cannula Nasal Cannula Nasal Cannula O2 Flow Rate 2.0 1.0 1.0 06/06/16 06/06/16 06/06/16 06/06/16 08:14 08:43 08:43 08:44 Temp 98.2 98.2 Pulse 71 71 71 71 Resp 16 B/P 159/50 159/50 159/50 159/50 Pulse Ox 96 O2 Delivery Nasal Cannula 06/06/16 08:45 Pulse 71 B/P 159/50 Intake and Output 06/05/16 06/05/16 06/06/16 15:00 23:00 07:00 Intake Total 600 ml 300 ml Output Total 150 ml Balance -150 ml 600 ml 300 ml SAMIA MARTINEZ MD Jun 06, 2016 10:05
[2016-06-06] MEDS ORDERED: NYST1000 SWSW (10:18)
--- NOTE | 2016-06-06 10:47 | PDOC ---
Renal-Progress Notes Subjective Notes Notes NONE History of Present Illness Hx of present illness BETTER Vitals Vitals Vital Signs Date Time Temp Pulse Resp B/P Pulse Ox O2 Delivery O2 Flow Rate FiO2 06/06/16 08:45 71 159/50 06/06/16 08:14 98.2 16 96 Nasal Cannula 98.2 06/06/16 08:00 2.0 Weight Weight [ ] I.O. Intake and Output Intake and Output 06/06/16 07:00 Intake Total 900 ml Output Total 150 ml Balance 750 ml Intake Oral 900 ml Output Urine Total 150 ml # Voids 1 Labs Labs Laboratory Tests Test 06/05/16 17:31 06/05/16 20:43 06/06/16 08:17 Glucose (Fingerstick) 185mg/dL (70-99) 185mg/dL (70-99) 113mg/dL (70-99) Review of Systems Constitutional: yes: alert, oriented Ears/Nose/Throat: Yes: no symptom reported Eyes: Yes: no symptom reported Pulmonary: Yes dyspnea Cardiovascular: Yes no symptom reported Gastrointestional: Yes: constipation Genitourinary: Yes: no symptom reported Musculoskeletal: Yes: muscle stiffness Skin: Yes no symptom reported Physical Exam General Appearance: no apparent distress Skin: warm Respiratory: decreased breath sounds Heart: S1S2, RRR Abdomen: soft, bowel sounds present Genitourinary: bladder flat Extremities: no edema, atrophy Neurology: alert, oriented Assessment Assessment IMP CHF-COMPENSATED ANEMIA HTN ESRD PLAN OK TO D/C FROM RENAL STANDPOINT OP HD TOMORROW UPDATED FAMILY D/W ATTENDING JENARO PÉREZ MD Jun 06, 2016 10:47
[2016-06-06 11:11] VITALS: BP 156/49
--- NOTE | 2016-06-06 12:15 | PDOC ---
CARDIO Progress Notes Date and Time Date of Service 06/06/2016 Time of Evaluation 1200 Subjective Subjective: No Chest Pain, No shortness of breath, No Palpitations, No Dizziness Vitals Vitals Vital Signs Date Time Temp Pulse Resp B/P Pulse Ox O2 Delivery O2 Flow Rate FiO2 06/06/16 11:11 98.2 72 16 156/49 93 Room Air 98.2 06/06/16 08:00 2.0 Weight Weight [ ] Input and Output Intake and Output Intake and Output 06/06/16 07:00 Intake Total 900 ml Output Total 150 ml Balance 750 ml Intake Oral 900 ml Output Urine Total 150 ml # Voids 1 Laboratory Labs Laboratory Tests Test 06/05/16 17:31 06/05/16 20:43 06/06/16 08:17 Glucose (Fingerstick) 185mg/dL (70-99) 185mg/dL (70-99) 113mg/dL (70-99) Review of Systems Constitutional: yes: alert, oriented Ears/Nose/Throat: Yes: no symptom reported Eyes: Yes: no symptom reported Pulmonary: Yes dyspnea Cardiovascular: Yes no symptom reported Gastrointestional: Yes: constipation Genitourinary: Yes: no symptom reported Musculoskeletal: Yes: muscle stiffness Skin: Yes no symptom reported Physical Exam HEENT: Neck Supple W Full Motion Chest: Symmetric LUNGS: Clear to Auscultation Heart: S1S2, RRR (No significant rhythm ectopies) Abdomen: Soft N/T Extremities: No Calf Tenderness, Other (1+ bilateral LE pitting edema) Neurology: alert, oriented, follow commands Assessment Assessment 1. Acute on chronic diastolic CHF: Suspect refractory episode likely from uncontrolled HTN. Clinically compensated. 2. Elevated troponin: peaked at 0.11. CP free. EKG SR without acute changes. Demand mediated r/t CHF, uncontrolled HTN with underlying ESRD. Doubt ACS. Currently on plavix per vascular surgeon's preference reported by pt. MPI 04/26 at [place] noted with EF of 66% with negative stress test. Last TTE noted on 07/08/2015 with normal LV function with preserved EF and mild MR/TR. Continue with secondary prevention. No further workup at this time. 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 3. Hx of of aortic atherosclerosis: noted via CXR in the past but no known hx of CAD. 4. HTN: improved with hydralazine increase and addition of imdur. 5. HLP: Low dose zocor. LDL 98. 6. DM2: last A1C at 6.6. on insulin therapy Per PCP 7. Hypothyroidism: on replacement. 8. Anemia of chronic disease: Hgb 9.0 9. ESRD: HD per nephrology 10. Hx of MRSA: in 2007. VELIA NIEVES APRN Jun 06, 2016 12:15
[2016-06-06] MEDS: NYSTATIN 100,000 UNITS/ML 5 ML ORAL.SUSP. SWSW SCH ×2 (12:17→14:12)
[2016-06-06] MEDS ORDERED: SIMV10TA PO (12:42)
[2016-06-06 14:12] VITALS: BP 156/49
[2016-06-06] MEDS ORDERED: ISOS30TA4 PO ×2 (14:26→14:29)
[2016-06-06] MEDS ORDERED: HYDR100T24 PO ×2 (14:27→14:29)
[2016-06-06] MEDS ORDERED: SIMVASTATIN 10 MG TABLET PO SCH ×2 (21:00)
[2016-06-07] MEDS ORDERED: ISOSORBIDE MONONITRATE ER 30 MG TAB.ER.24H PO SCH (09:00)
== END 2016-06-06 15:37 | disposition home or self-care (01) | DRG 291 ==
LOC: 2 NORTH 15:03
PROVIDERS: ADMIT Internal Medicine; ATTEND Internal Medicine
PROC: 5A1D00Z (ICD-10-PCS; principal; 2016-06-05)
DX: I13.2 Hypertensive heart and chronic kidney disease with heart failure and with stage 5 chronic kidney disease, or end stage renal disease (principal); I50.33 Acute on chronic diastolic (congestive) heart failure; N18.6 End stage renal disease; E44.1 Mild protein-calorie malnutrition; E24.9 Cushing's syndrome, unspecified; D63.8 Anemia in other chronic diseases classified elsewhere; E03.9 Hypothyroidism, unspecified; E11.22 Type 2 diabetes mellitus with diabetic chronic kidney disease; E21.3 Hyperparathyroidism, unspecified; E78.5 Hyperlipidemia, unspecified; F41.9 Anxiety disorder, unspecified; I25.10 Atherosclerotic heart disease of native coronary artery without angina pectoris; K21.9 Gastro-esophageal reflux disease without esophagitis; M19.90 Unspecified osteoarthritis, unspecified site; Z82.49 Family history of ischemic heart disease and other diseases of the circulatory system; Z86.14 Personal history of Methicillin resistant Staphylococcus aureus infection; Z99.2 Dependence on renal dialysis; Z68.31 Body mass index [BMI] 31.0-31.9, adult; Z79.899 Other long term (current) drug therapy; Z98.890 Other specified postprocedural states
CPT/HCPCS: 36415; 71020; 80048; 80061; 82947; 83735; 84100; 84484; 85027; 85610; 93005; 94250; 94620; 94640; 94760; J0881; J1815; J7620; Q0163; 97116; 97530; 97535

== ENCOUNTER 2017-02-19 11:02 | Inpatient (IN) | payer MEDICARE ==
[~2017-02-19] VITALS: Ht 157.5 cm; Wt 71.4 kg
[~2017-02-19 11:02] MED LIST changes: +AMLO10TA4 PO; +AZIL80TA PO; +BIFI1CAP PO; +ESCITALOPRAM OX10 MG PO; +FLUT1DIS3 IH; +FLUT9.9S NS; +FOLI1TAB16 PO; +HYDR-2868 PO; +HYDR100T24 PO; +INSU100I11 SQ; +IPRA3AMP NEB; +ISOS30TA4 PO; +LEVO75TA5 PO; +NYST100054 SWSW; +OMEP20CA9 PO; +SIMV10TA PO
[2017-02-19 12:56] VITALS: BP 180/63
--- NOTE | 2017-02-19 14:09 | PDOC2 ---
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 She presented to the ED at [facility] for evaluation of chest pain. She reports her symptoms began with a sore throat last week. She was seen by her PCP and given an Rx for amoxicillin. She began taking this on Friday. She then developed a cough with clear sputum over the last couple days. She says today she woke with pain across her chest, shoulders and neck. She reports this is increased with cough and deep inspiration. She presented to the ED where she was given NTG x 2 but denies improvement with this. She was subsequently given fentanyl which she reports improved her symptoms. She reports associated mild dyspnea, nausea and apparently one episode of vomiting. She also complains of fever and chills over the last couple days. She denies any significant increase in her weight from her dry weight. She denies orthopnea or PND or increased edema. She denies missing any dialysis runs. She denies any additional sodium in diet or change in medications. She normally sees Dr Downs and apparently had a stress test and echo late last year that were reportedly normal. PAST MEDICAL HISTORY Past Medical History Echo 2014 The left ventricular systolic function is normal. The Ejection Fraction is estimated at 60-65%. There is normal LV segmental wall motion. Doppler and Color Flow revealed mild mitral regurgitation. Doppler and Color Flow revealed mild tricuspid regurgitation. The PA pressure was estimated at 24 mmHg. There is no evidence of significant pericardial effusion. Cardiovascular: CAD (? she denies this), CHF, HTN, Hyperlipidemia Pulmonary: No pertinent hx CENTRAL NERVOUS SYSTEM: Other (No pertinent history) GI: GERD Heme/Onc: Anemia NOS Hepatobiliary: No pertinent hx Psych: Anxiety Musculoskeletal: Osteoarthritis Rheumatologic: No pertinent hx Infectious disease: Other (MRSA 2007) ENT: No pertinent hx Renal/: Chronic renal failure (ESRD) Endocrine: Diabetes (2), Hypothyroidism, Hyperparathyroidism Dermatology: No pertinent hx PAST SURGICAL HISTORY Past Surgical History Cholecystectomy, Tonsillectomy, Other (Right arm dialysis AV fistula placement with eventual thrombectomy and revision; right basilic vein stent placement last week) FAMILY HISTORY Family History Family History Family History: No Significant SOCIAL HISTORY Social History Social History Smoke: No ALCOHOL: none Drugs: None ALLERGIES ALLERGIES: Coded Allergies: No Known Drug Allergies (Unverified , 02/22/14) ROS Review of System as per HPI or negative PHYSICAL EXAM General: Alert, Oriented X3, Cooperative, No acute distress HEENT: Atraumatic, EOMI Lungs: Other (essentially clear with decreased bases) Heart: Regular rate, Normal S1, Normal S2, Other (no gallops, clicks or rubs) Abdomen: Normal bowel sounds, Soft Extremities: No cyanosis, No edema, Normal pulses Skin: Other (warm to touch) Neuro: Normal speech, Strength at 5/5 X4 ext Psych/Mental Status: Mental status NL, Mood NL VITALS VITALS Vital Signs Date Time Temp Pulse Resp B/P (MAP) Pulse Ox O2 Delivery O2 Flow Rate FiO2 02/19/17 12:56 99.1 58 18 180/63 (102) 97 Room Air 99.1 LABS Lab: Reviewed labs from [facility]. Trop remains normal. ASSESSMENT/PLAN ASSESSMENT/PLAN 1. Atypical chest pain 2. accelerated hypertension 3. URI 4. acute on chronic diastolic HF 5. ESRD/HD per Renal Suggest check echo for LV function, monitor serial enzymes, fluid balance per HD / renal. Resume home antihypertensive medications and aspirin. Check lipid panel and request records from primary datawarehouse developer. Problems: JANEL TALBERT MD 02/19/17 1900: CARDIAC CONSULT ALLERGIES ALLERGIES: Coded Allergies: No Known Drug Allergies (Unverified , 02/22/14) ASSESSMENT/PLAN ASSESSMENT/PLAN Patient seen and examined. Agree with STUDIO OPERATIONS MANAGER's assessment and plan. Chest pain with atypical features. Myocardial infarction ruled out. Check 2-D echo to assess LV function and rule out wall motion abnormalities. Resume home antihypertensive medications and titrate for better blood pressure control. Continue fluid removal with hemodialysis for acute on chronic diastolic heart failure. We will obtain results of recent stress test from Dr. Downs office. Thank you for your consultation. Problems: HAWA ABURTO APRN Feb 19, 2017 14:09 JANEL TALBERT MD Feb 19, 2017 19:00
[2017-02-19] MEDS: fentaNYL PF VIAL 100 MCG/2 ML VIAL IV PRN ×2 (14:32→21:22)
--- NOTE | 2017-02-19 15:45 | EKG ---
[facility] [address] [place] [address] Test Date: 2017-02-19 Test Time: 15:41:12 Pat Name: OTONIEL LOCKWOOD Department: Room: 204 1 Gender: F Toe Stripper: DENNIS : 1935 Requested By: HAWA ABURTO Order Number: [id number] Reading MD: Senia Preston Measurements Intervals [place] Rate: 58 P: 35 MO: 168 QRS: 8 QRSD: 86 T: 52 QT: 408 QTc: 404 Interpretive Statements SINUS RHYTHM QRS(T) CONTOUR ABNORMALITY CONSIDER ANTEROSEPTAL MYOCARDIAL DAMAGE POSSIBLY ABNORMAL ECG Electronically Signed On 02-23-2017 15:23:23 CDT by Senia Preston
[2017-02-19] MEDS ORDERED: IV NORMAL SALINE 1000ML BAG 1,000 ML IV PRN (16:37)
[2017-02-19] MEDS ORDERED: DIALYSIS PATIENT. MC PRN (16:45)
[2017-02-19] MEDS ORDERED: LEVO100T5 PO (16:55)
[2017-02-19] MEDS ORDERED: OM-31CAP7 PO (16:55)
[2017-02-19] MEDS ORDERED: PANT40TA5 PO (16:55)
[2017-02-19 17:04] LABS: CHOLESTEROL/HDL RATIO 2.5
[2017-02-19 19:35] VITALS: BP 165/59
[2017-02-19] MEDS: CALCIUM ACETATE 667 MG CAPSULE PO SCH (21:21)
[2017-02-19] MEDS: SIMVASTATIN 10 MG TABLET PO SCH (21:21)
[2017-02-19 23:15] VITALS: BP 141/58
[2017-02-20 03:15] VITALS: BP 146/59
[2017-02-20] MEDS: CALCIUM ACETATE 667 MG CAPSULE PO SCH ×3 (07:15→17:59)
[2017-02-20 07:52] VITALS: BP 147/62
--- NOTE | 2017-02-20 10:31 | CARD ---
APPROVED REPORT EXAM: Two-dimensional and M-mode echocardiogram with Doppler and color Doppler. Other Information Quality : Average INDICATION Chest Pain Congestive Heart Failure 2D DIMENSIONS RVDd3.0 (2.9-3.5cm)Left Atrium(2D)4.0 (1.6-4.0cm) IVSd1.1 (0.7-1.1cm)Aortic Root(2D)2.8 (2.0-3.7cm) LVDd5.0 (3.9-5.9cm)LVOT Diameter1.8 (1.8-2.4cm) PWd1.1 (0.7-1.1cm)LVDs2.9 (2.5-4.0cm) SV85.7 mlLVEF(%)50.0 (>50%) Aortic Valve AoV Peak Satish.256.7cm/sAoV VTI56.4cm AO Peak GR.26.4mmHgLVOT Peak Satish.127.7cm/s LVOT VTI 29.47cmAO Mean GR.14mmHg GARY (VMAX)1.12fs5GJI (VTI)1.33cm2 Mitral Valve MV E Pymvgwbx339.3cm/sMV DECEL AYLN250sc MV A Gprrcreo730.5cm/sMV E Mean Gr.5mmHg MV EGO69ozO/A Ratio1.2 MV A Jzpiwayg00xgVRK (PHT)4.07cm2 TDI E/Lateral E'14.8E/Medial E'13.6 Pulmonary Valve PV Peak Tqxochms763.0cm/sPV Peak Grad.5mmHg RVOT VTI25.0cm Tricuspid Valve TR P. Bwitgdoj750no/sTR Peak Gr.11mmHg Pulmonary Vein S1 Sikkpjvl49.1cm/sD2 Kxzmosbm28.0cm/s LEFT VENTRICLE The left ventricle is normal size. There is normal left ventricular wall thickness. The left ventricu lar systolic function is normal and the ejection fraction is within normal range. EF 55% There is diana ssly normal LV segmental wall motion. Technically difficult study precludes accurate wall motion asse ssment. The left ventricular diastolic function and filling is normal for age. RIGHT VENTRICLE The right ventricle is normal size. There is normal right ventricular wall thickness. The right ventr icular systolic function is normal. ATRIA The left atrium size is normal. The right atrium size is normal. The interatrial septum is intact wit h no evidence for an atrial septal defect or patent foramen ovale as noted on 2-D or Doppler imaging. AORTIC VALVE The aortic valve is mildly calcified. Doppler and Color Flow revealed trace aortic regurgitation. Keven culated aortic valve area is 1.2 cm2 (likely underestimated) with maximum pressure gradient of 26 mmH g and mean pressure gradient of 15 mmHg. Doppler and color-flow analysis revealed mild aortic stenosi s. There is no aortic valvular vegetation. MITRAL VALVE The posterior mitral valve leaflet appears calcified with restricted leaflet motion. There is no mitr al valve stenosis. Doppler and Color Flow revealed mild mitral regurgitation. TRICUSPID VALVE The tricuspid valve is normal in structure and function. Doppler and Color Flow revealed trace tricus pid regurgitation. The PA pressure was estimated at 14 mmHg. There is no tricuspid valve stenosis. PULMONIC VALVE Doppler and Color Flow revealed no pulmonic valvular regurgitation. There is no pulmonic valvular janet nosis. GREAT VESSELS The aortic root is normal in size. Normal pulmonary venous flow (Doppler). The IVC is normal in size and collapses >50% with inspiration. PERICARDIAL EFFUSION There is no pleural effusion. There is no evidence of significant pericardial effusion. Critical Notification Critical Value: No <Conclusion> The left ventricular systolic function is normal and the ejection fraction is within normal range. EF 55% There is grossly normal LV segmental wall motion. Technically difficult study precludes accurate wall motion assessment. Calculated aortic valve area is 1.2 cm2 (likely underestimated) with maximum pressure gradient of 26 mmHg and mean pressure gradient of 15 mmHg. Doppler and color-flow analysis revealed mild aortic sten osis. Doppler and Color Flow revealed mild mitral regurgitation.
[2017-02-20 10:36] LABS: BASO # 0.1 x10^3/uL (0.0-0.2); BASO % 1 % (0-3); EOS % 1 % (0-3); HEMATOCRIT 33.1 % (36.0-47.0); HEMOGLOBIN 11.2 g/dL (12.0-15.5); LYMPH # 1.1 x10^3/uL (1.0-4.8); LYMPH % 12 % (24-48); MEAN CORPUSCULAR HEMOGLOBIN 33 pg (25-35); MEAN CORPUSCULAR HGB CONC 34 g/dL (31-37); MEAN CORPUSCULAR VOLUME 98 fL (79-100); MONO % 7 % (0-9); NEUT % 80 % (31-73); PLATELET COUNT 190 x10^3/uL (140-400); RED BLOOD COUNT 3.39 x10^6/uL (3.50-5.40); RED CELL DISTRIBUTION WIDTH 13.7 % (11.5-14.5); WHITE BLOOD COUNT 9.1 x10^3/uL (4.0-11.0)
[2017-02-20 10:50] VITALS: BP 177/56
[2017-02-20 10:54] LABS: ALBUMIN 3.1 g/dL (3.4-5.0); ALBUMIN/GLOBULIN RATIO 0.9 (1.0-1.7); CALCIUM 9.5 mg/dL (8.5-10.1); CREATININE 4.3 mg/dL (0.6-1.0); GFR 9.9; TOTAL BILIRUBIN 0.8 mg/dL (0.2-1.0); TOTAL PROTEIN 6.7 g/dL (6.4-8.2)
--- NOTE | 2017-02-20 11:20 | HP ---
ADMIT DATE: 02/19/2017 HISTORY OF PRESENT ILLNESS: The patient is an 81-year-old female patient who presented to the Emergency Room of with severe chest pain that radiates to her back and neck that awakened her from sleep around 3:00 in the morning. She also felt nauseated and vomited once. She states that she was going to dialysis, but because of the pain she was brought to the Emergency Room. She denied any previous problem with her heart. She does have a history of hypertension and was recently started on antibiotics for a sore throat. She also admits to mild shortness of breath, but denied any fevers, chills, or abdominal pain. She was evaluated in the Emergency Room. Her EKG showed that she was in sinus rhythm at 69 beats per minute without any ST segment elevations, T-wave flattening noted in V5 and V6 and left axis deviation, corrected QT interval 422 milliseconds. Given the complaint, the patient underwent CT scan of the chest to rule out possibility of dissecting aortic aneurysm and showed that there is no acute finding seen in the chest, abdomen and pelvis, no evidence of dissection. Noncontrast images were not obtained and a full assessment for potential intramural hematoma as a result is not possible. She has minute right pleural effusion, small ventral abdominal wall hernia, mild mediastinal adenopathy, likely incidental. She did receive 2 nitroglycerin sublingually for her pain with slight improvement present until after she received fentanyl that has had substantial improvement in her pain. Therefore, given that the patient needs dialysis, she was admitted to [facility] to consult the patrol sergeant as well as the Cardiology to rule out myocardial infarction. PAST MEDICAL HISTORY: Significant for end-stage renal disease, on hemodialysis; hyperlipidemia, gastroesophageal reflux disease, type 2 diabetes. She apparently is also known to have anemia of chronic kidney disease, hypothyroidism, hyperparathyroidism. PAST SURGICAL HISTORY: Significant for tonsillectomy as well as right arm dialysis arteriovenous fistula creation. She has history of cholecystectomy. She underwent also thrombectomy and revision of the right basilic vein stent placement. FAMILY HISTORY: Positive for coronary artery disease in her sister. SOCIAL HISTORY: She lives with her family. She does not smoke, drink alcohol or use recreational drugs. REVIEW OF SYSTEMS: As per history of present illness. MEDICATIONS: She is currently on following medications: She is on amlodipine 10 mg once a day, azilsartan medoxomil 80 mg once a day, bifidobacterium infantis or digestive probiotic, calcium acetate 667 mg 3 times a day with meals, Plavix 75 mg once a day, escitalopram oxalate 10 mg once a day, Advair Diskus 250/50 one puff twice a day, folic acid 1 mg once a day, hydralazine 100 mg 3 times a day, hydrocodone/APAP 5/325 one tablet every 4 hours as needed. She is on Lantus insulin 10 units at bedtime, Humalog insulin as insulin sliding scale, ipratropium bromide/albuterol sulfate 0.5/2.5 in 3 mL by nebulizer 4 times a day, isosorbide mononitrate 30 mg daily, levothyroxine sodium 100 mcg once a day, Nystatin 100,000 units/mL swish and swallow 4 times a day, Restore capsule 1 daily, Protonix 40 mg once a day, simvastatin 10 mg at bedtime. PHYSICAL EXAMINATION: GENERAL: On arrival to the [facility], she looked well and was clearly in no apparent respiratory distress, pale, but no jaundice, cyanosis, or thyromegaly. No jugular venous distention. No limb edema. VITAL SIGNS: Her heart rate was 66, blood pressure was 165/59, temperature was 98.9, respiratory rate was 19 and oxygen saturation was 92% on room air. HEAD, EYES, EARS, NOSE, THROAT: Normocephalic, atraumatic. NECK: Supple. HEART: Showed normal first and second heart sounds with no gallop, rub or murmur. CHEST: Clear to auscultation. No crepitation or rhonchi. ABDOMEN: Distended, soft, nontender. No guarding or rigidity. No organomegaly. All hernial orifices intact. Bowel sounds normal. NEUROLOGIC: She is awake, alert, responding appropriately. Cranial nerves intact. She moves extremities without difficulty. LABORATORY DATA: Her EKG done at showed that she was in sinus rhythm with a heart rate of 69 beats per minute without any ST segment elevation. She has diffuse T waves in V5 and V6, left axis deviation and corrected QT interval of 422. She did have a CT angio of the chest, abdomen and pelvis, which showed that there is no acute finding seen in the chest, abdomen and pelvis, no evidence of dissection, noncontrast images were not obtained and a full assessment for potential intramural hematoma as a result is not possible. She has minute right pleural effusion, small ventral abdominal hernia, mild mediastinal adenopathy, likely reactive. Her white cell count was 11,000, hemoglobin 12, hematocrit 35, MCV 97 and platelet count of 176,000 with normal manual differential. Her serum sodium was 135, potassium 4.1, chloride 99, bicarbonate 25, anion gap of 11, total protein 6.8, albumin 3.6, calcium 9.4, glucose 162, BUN 62, creatinine 5.8. Total bilirubin, AST, ALT, alkaline phosphatase were normal. Her beta natriuretic peptide was 9644, her prothrombin time was 11, INR 1.1, aPTT was 29. Her troponin was less than 0.017. Magnesium was 1.7 and serum lipase was 132. PLAN: To consult the Nephrology team as well as the Cardiology team. She is due for her scheduled hemodialysis today. We will consult the Cardiology, will do 2 more sets of cardiac enzymes and decide on further management accordingly. ACOSTA VELÁSQUEZ MD DR: LEVI/darnell JOB#: [id number] / [id number]
--- NOTE | 2017-02-20 11:43 | PDOC2 ---
CONSULT Date of Consult Date of Consult DATE: 02/20/17 TIME: 11:38 Reason for Consult Reason for Consult: CHEST PAIN Referring Physician Referring Physician: DIDIER Identification/Chief Complaint Chief Complaint CHEST PAIN Problems: Source Source: Chart review, Patient History of Present Illness Reason for Visit: THIS IS AN 81 YR OLD HERE FOR EVALUATION OF HER CHEST PAIN. SHE HAS HAD AN URI AND HAS BEEN ON AMOXIL OP WELL. SHE IS HERE UNDERGOING EVAL FOR HER CHEST PAIN. HX POS FOR HTN AND ESRD. SHE IS ON OP HD ON MWF. LABS ARE C/W ESRD Past Medical History Cardiovascular: CAD, CHF, HTN, Hyperlipidemia Pulmonary: No pertinent hx CENTRAL NERVOUS SYSTEM: Other GI: GERD Heme/Onc: Anemia NOS Hepatobiliary: No pertinent hx Psych: Anxiety Rheumatologic: No pertinent hx Infectious disease: Other Renal/: Chronic renal failure Endocrine: Diabetes, Hypothyroidism, Hyperparathyroidism Past Surgical History Past Surgical History: Cholecystectomy, Tonsillectomy, Other Family History Family History: Coronary Artery Disease Social History ALCOHOL: none Drugs: None Lives: with Family Current Medications Current Medications Current Medications Fentanyl Citrate (Fentanyl 2ml Vial) 50 mcg PRN Q4HRS PRN IV PAIN Last administered on 02/19/17 21:22; Start 02/19/17 at 14:00 Sodium Chloride 1,000 ml @ 1,000 mls/hr Q1H PRN IV hypotension; Start at 16:37; Stop 02/19/17 at 22:36; Status DC Info (PHARMACY MONITORING -- do not chart) 1 each PRN DAILY PRN MC SEE COMMENTS ; Start 02/19/17 at 16:45 Amlodipine Besylate (Norvasc) 10 mg DAILY PO ; Start 02/20/17 at 09:00 Calcium Acetate (Phoslo) 667 mg TIDWMEALS PO Last administered on 02/19/17 21 :21; Start 02/19/17 at 17:15 Clopidogrel Bisulfate (Plavix) 75 mg DAILY PO ; Start 02/20/17 at 09:00 Isosorbide Mononitrate (Imdur) 30 mg DAILY PO ; Start 02/20/17 at 09:00 Simvastatin (Zocor) 10 mg QHS PO Last administered on 02/19/17 21:21; Start 02/19/17 at 21:00 Hydralazine HCl (Apresoline) 100 mg TID PO Last administered on 02/19/17t 21: 21; Start 02/19/17 at 17:15 Active Scripts Active Nystatin 100,000 Unit/1 Ml Oral.susp 5 Ml SWSW [id number] Lortab 5-325 mg Tablet (Hydrocodone/Acetaminophen) 1 Each Tablet 1 Tab PO PRN Q6HRS PRN Reported Restora Capsule (Om-3/Dha/Epa/Fish Oil/L. Casei) 1 Each Capsule 1 Each PO DAILY Pantoprazole Sodium 40 Mg Tablet.dr 1 Tab PO DAILY Levothyroxine Sodium 100 Mcg Tablet 1 Tab PO DAILY Hydralazine Hcl 100 Mg Tablet 1 Tab PO TID Isosorbide Mononitrate Er (Isosorbide Mononitrate) 30 Mg Tab.er.24h 1 Tab PO DAILY CONTINUE ON DISCHARGE Hydralazine Hcl 100 Mg Tablet 1 Tab PO TID Isosorbide Mononitrate Er (Isosorbide Mononitrate) 30 Mg Tab.er.24h 1 Tab PO DAILY Zocor (Simvastatin) 10 Mg Tablet 1 Tab PO QHS Omeprazole 20 Mg Capsule.dr 1 Cap PO DAILY Duoneb 0.5-3(2.5) Mg/3 Ml (Albuterol/Ipratropium) 3 Ml Ampul.neb 3 Ml NEB QID Humalog (Insulin Lispro) 100 Unit/1 Ml Insuln.pen 100 Unit SQ Folic Acid 1 Mg Tablet 1 Tab PO DAILY Advair 250-50 Diskus (Fluticasone/Salmeterol) 1 Each Disk.w.dev 1 Puff IH BID Flonase Allergy Relief (Fluticasone Propionate) 9.9 Ml Sarah.susp 2 Sprays NS DAILY Escitalopram Oxalate 10 Mg Tablet 1 Tab PO DAILY Digestive Probiotic (Bifidobacterium Infantis) 1 Each Capsule Unknown Dose PO Edarbi (Azilsartan Medoxomil) 80 Mg Tablet 80 Mg PO DAILY Norvasc (Amlodipine Besylate) 10 Mg Tablet 10 Mg PO DAILY Lantus Solostar (Insulin Glargine,Hum.rec.anlog) 100 Unit/1 Ml Insuln.pen 10 Unit SQ HS Clopidogrel (Clopidogrel Bisulfate) 75 Mg Tablet 75 Mg PO DAILY Phoslo (Calcium Acetate) 667 Mg Capsule 667 Mg PO TID Allergies Allergies: Coded Allergies: No Known Drug Allergies (Unverified , 02/22/14) ROS General: YES: Fatigue, Malaise PSYCHOLOGICAL ROS: YES: Anxiety Eyes: Yes Decreased vision HEENT: YES: Heacaches Respiratory: YES: Cough, Shortness of breath Cardiovascular: yes Chest Pain, yes Lt Headedness Gastrointestinal: Yes Constipation Genitourinary: YES Other (ANURIA) Musculoskeletal: Yes Muscular Weakness Neurological: Yes Weakness Skin: Yes Dry Skin Physical Exam General: Alert, Oriented X3, Cooperative, No acute distress HEENT: Atraumatic, PERRLA Lungs: Clear to auscultation Heart: Regular rate, Normal S1 Abdomen: Normal bowel sounds, Soft, No tenderness Extremities: No cyanosis Skin: No rashes Neuro: Normal speech, Cranial nerves 3-12 NL Psych/Mental Status: Mental status NL, Mood NL MUSCULOSKELETAL: No joint tenderness, Other (DIFFUSE MUSCLE ATROPHY, ALSO REPRODUCIBLE CHEST WALL PAIN) Vitals VITALS Vital Signs Date Time Temp Pulse Resp B/P (MAP) Pulse Ox O2 Delivery O2 Flow Rate FiO2 02/20/17 10:50 99.6 61 18 177/56 (96) 93 Room Air 99.6 02/19/17 23:15 2.0 Labs Labs Laboratory Tests Test 02/19/17 13:00 02/19/17 16:15 02/19/17 21:29 02/20/17 07:54 Nasal Screen MRSA (PCR) Negative (Negative) Troponin I Quantitative < 0.017 ng/mL (0.000-0.055) Triglycerides Level 48 mg/dL (0-150) Cholesterol Level 137 mg/dL (0-200) LDL Cholesterol, Calculated 72 mg/dL (0-100) VLDL Cholesterol, Calculated 10 mg/dL (0-40) Non-HDL Cholesterol Calculated 82 mg/dL (0-129) HDL Cholesterol 55 mg/dL (40-60) Cholesterol/HDL Ratio 2.5 Glucose (Fingerstick) 177 mg/dL (70-99) 105 mg/dL (70-99) Test 02/20/17 10:30 White Blood Count 9.1 x10^3/uL (4.0-11.0) Red Blood Count 3.39 x10^6/uL (3.50-5.40) Hemoglobin 11.2 g/dL (12.0-15.5) Hematocrit 33.1 % (36.0-47.0) Mean Corpuscular Volume 98 fL (79-100) Mean Corpuscular Hemoglobin 33 pg (25-35) Mean Corpuscular Hemoglobin Concent 34 g/dL (31-37) Red Cell Distribution Width 13.7 % (11.5-14.5) Platelet Count 190 x10^3/uL (140-400) Neutrophils (%) (Auto) 80 % (31-73) Lymphocytes (%) (Auto) 12 % (24-48) Monocytes (%) (Auto) 7 % (0-9) Eosinophils (%) (Auto) 1 % (0-3) Basophils (%) (Auto) 1 % (0-3) Neutrophils # (Auto) 7.3 x10^3uL (1.8-7.7) Lymphocytes # (Auto) 1.1 x10^3/uL (1.0-4.8) Monocytes # (Auto) 0.6 x10^3/uL (0.0-1.1) Eosinophils # (Auto) 0.1 x10^3/uL (0.0-0.7) Basophils # (Auto) 0.1 x10^3/uL (0.0-0.2) Sodium Level 138 mmol/L (136-145) Potassium Level 4.0 mmol/L (3.5-5.1) Chloride Level 99 mmol/L (98-107) Carbon Dioxide Level 29 mmol/L (21-32) Anion Gap 10 (6-14) Blood Urea Nitrogen 37 mg/dL (7-20) Creatinine 4.3 mg/dL (0.6-1.0) Estimated GFR (Cockcroft-Gault) 9.9 BUN/Creatinine Ratio 9 (6-20) Glucose Level 114 mg/dL (70-99) Calcium Level 9.5 mg/dL (8.5-10.1) Magnesium Level 2.0 mg/dL (1.8-2.4) Total Bilirubin 0.8 mg/dL (0.2-1.0) Aspartate Amino Transf (AST/SGOT) 22 U/L (15-37) Alanine Aminotransferase (ALT/SGPT) 34 U/L (14-59) Alkaline Phosphatase 90 U/L (46-116) Total Protein 6.7 g/dL (6.4-8.2) Albumin 3.1 g/dL (3.4-5.0) Albumin/Globulin Ratio 0.9 (1.0-1.7) Laboratory Tests Test 02/19/17 13:00 02/19/17 16:15 02/19/17 21:29 02/20/17 07:54 Nasal Screen MRSA (PCR) Negative (Negative) Troponin I Quantitative < 0.017 ng/mL (0.000-0.055) Triglycerides Level 48 mg/dL (0-150) Cholesterol Level 137 mg/dL (0-200) LDL Cholesterol, Calculated 72 mg/dL (0-100) VLDL Cholesterol, Calculated 10 mg/dL (0-40) Non-HDL Cholesterol Calculated 82 mg/dL (0-129) HDL Cholesterol 55 mg/dL (40-60) Cholesterol/HDL Ratio 2.5 Glucose (Fingerstick) 177 mg/dL (70-99) 105 mg/dL (70-99) Test 02/20/17 10:30 White Blood Count 9.1 x10^3/uL (4.0-11.0) Red Blood Count 3.39 x10^6/uL (3.50-5.40) Hemoglobin 11.2 g/dL (12.0-15.5) Hematocrit 33.1 % (36.0-47.0) Mean Corpuscular Volume 98 fL (79-100) Mean Corpuscular Hemoglobin 33 pg (25-35) Mean Corpuscular Hemoglobin Concent 34 g/dL (31-37) Red Cell Distribution Width 13.7 % (11.5-14.5) Platelet Count 190 x10^3/uL (140-400) Neutrophils (%) (Auto) 80 % (31-73) Lymphocytes (%) (Auto) 12 % (24-48) Monocytes (%) (Auto) 7 % (0-9) Eosinophils (%) (Auto) 1 % (0-3) Basophils (%) (Auto) 1 % (0-3) Neutrophils # (Auto) 7.3 x10^3uL (1.8-7.7) Lymphocytes # (Auto) 1.1 x10^3/uL (1.0-4.8) Monocytes # (Auto) 0.6 x10^3/uL (0.0-1.1) Eosinophils # (Auto) 0.1 x10^3/uL (0.0-0.7) Basophils # (Auto) 0.1 x10^3/uL (0.0-0.2) Sodium Level 138 mmol/L (136-145) Potassium Level 4.0 mmol/L (3.5-5.1) Chloride Level 99 mmol/L (98-107) Carbon Dioxide Level 29 mmol/L (21-32) Anion Gap 10 (6-14) Blood Urea Nitrogen 37 mg/dL (7-20) Creatinine 4.3 mg/dL (0.6-1.0) Estimated GFR (Cockcroft-Gault) 9.9 BUN/Creatinine Ratio 9 (6-20) Glucose Level 114 mg/dL (70-99) Calcium Level 9.5 mg/dL (8.5-10.1) Magnesium Level 2.0 mg/dL (1.8-2.4) Total Bilirubin 0.8 mg/dL (0.2-1.0) Aspartate Amino Transf (AST/SGOT) 22 U/L (15-37) Alanine Aminotransferase (ALT/SGPT) 34 U/L (14-59) Alkaline Phosphatase 90 U/L (46-116) Total Protein 6.7 g/dL (6.4-8.2) Albumin 3.1 g/dL (3.4-5.0) Albumin/Globulin Ratio 0.9 (1.0-1.7) Assessment/Plan Assessment/Plan IMP URI-PROB VIRAL ANEMIA DM II HTN-NOT WELL CONTROLLED ESRD CHEST PAIN PROB COSTOCHONDRITIS PLAN HD YESTERDAY TOLERATED UF TO DW WELL HD MWF START ARANESP ADD LANDY-I JENARO PÉREZ MD Feb 20, 2017 11:43
--- NOTE | 2017-02-20 12:23 | PDOC ---
VELIA NIEVES STOREKEEPER STEWARD 02/20/17 1223: CARDIO Progress Notes Date and Time Date of Service 02/20/2017 Time of Evaluation 1210 Subjective Subjective: No Chest Pain, No shortness of breath, No Palpitations Vitals Vitals Vital Signs Date Time Temp Pulse Resp B/P (MAP) Pulse Ox O2 Delivery O2 Flow Rate FiO2 02/20/17 10:50 99.6 61 18 177/56 (96) 93 Room Air 99.6 02/19/17 23:15 2.0 Weight Weight [ ] Laboratory Labs Laboratory Tests Test 02/19/17 13:00 02/19/17 16:15 02/19/17 21:29 02/20/17 07:54 Nasal Screen MRSA (PCR) Negative (Negative) Troponin I Quantitative < 0.017 ng/mL (0.000-0.055) Triglycerides Level 48 mg/dL (0-150) Cholesterol Level 137 mg/dL (0-200) LDL Cholesterol, Calculated 72 mg/dL (0-100) VLDL Cholesterol, Calculated 10 mg/dL (0-40) Non-HDL Cholesterol Calculated 82 mg/dL (0-129) HDL Cholesterol 55 mg/dL (40-60) Cholesterol/HDL Ratio 2.5 Glucose (Fingerstick) 177 mg/dL (70-99) 105 mg/dL (70-99) Test 02/20/17 10:30 02/20/17 11:22 White Blood Count 9.1 x10^3/uL (4.0-11.0) Red Blood Count 3.39 x10^6/uL (3.50-5.40) Hemoglobin 11.2 g/dL (12.0-15.5) Hematocrit 33.1 % (36.0-47.0) Mean Corpuscular Volume 98 fL (79-100) Mean Corpuscular Hemoglobin 33 pg (25-35) Mean Corpuscular Hemoglobin Concent 34 g/dL (31-37) Red Cell Distribution Width 13.7 % (11.5-14.5) Platelet Count 190 x10^3/uL (140-400) Neutrophils (%) (Auto) 80 % (31-73) Lymphocytes (%) (Auto) 12 % (24-48) Monocytes (%) (Auto) 7 % (0-9) Eosinophils (%) (Auto) 1 % (0-3) Basophils (%) (Auto) 1 % (0-3) Neutrophils # (Auto) 7.3 x10^3uL (1.8-7.7) Lymphocytes # (Auto) 1.1 x10^3/uL (1.0-4.8) Monocytes # (Auto) 0.6 x10^3/uL (0.0-1.1) Eosinophils # (Auto) 0.1 x10^3/uL (0.0-0.7) Basophils # (Auto) 0.1 x10^3/uL (0.0-0.2) Sodium Level 138 mmol/L (136-145) Potassium Level 4.0 mmol/L (3.5-5.1) Chloride Level 99 mmol/L (98-107) Carbon Dioxide Level 29 mmol/L (21-32) Anion Gap 10 (6-14) Blood Urea Nitrogen 37 mg/dL (7-20) Creatinine 4.3 mg/dL (0.6-1.0) Estimated GFR (Cockcroft-Gault) 9.9 BUN/Creatinine Ratio 9 (6-20) Glucose Level 114 mg/dL (70-99) Calcium Level 9.5 mg/dL (8.5-10.1) Magnesium Level 2.0 mg/dL (1.8-2.4) Total Bilirubin 0.8 mg/dL (0.2-1.0) Aspartate Amino Transf (AST/SGOT) 22 U/L (15-37) Alanine Aminotransferase (ALT/SGPT) 34 U/L (14-59) Alkaline Phosphatase 90 U/L (46-116) Total Protein 6.7 g/dL (6.4-8.2) Albumin 3.1 g/dL (3.4-5.0) Albumin/Globulin Ratio 0.9 (1.0-1.7) Glucose (Fingerstick) 117 mg/dL (70-99) Physical Exam HEENT: Neck Supple W Full Motion Chest: Symmetric LUNGS: Clear to Auscultation, Other (diminished bases) Heart: S1S2, RRR (SR no significnat ectopies) Abdomen: Soft N/T Extremities: No Calf Tenderness Neurology: alert, oriented, follow commands Assessment Assessment 1. Atypical chest pain: started yesterday from shoulders, back arms and legs. Noncardiac. Early this yr MPI normal per pt. 2. Accelerated hypertension: labile, has not received her AM meds. 3. Acute on chronic diastolic HF: compensated after HD. EF normal. 4. ESRD/HD per Renal 5. Mild 6. Fever: Arthralgia, infectious process?. Possible culprit to generalized pain Recommendations 1. Continue home BP meds. No further cardiac workup 2. Discussed specific symptoms of CAD and if occurs then follow up with her primary social science teacher Dr. Downs. 3. Continue with secondary prevention 4. fluid off loading per HD. No further cardiac w/u JANEL TALBERT MD 02/20/17 1649: CARDIO Progress Notes Assessment Assessment Patient seen and examined. Agree with HUMAN RESOURCES BENEFITS ADMINISTRATOR's assessment and plan. 2-D echo showed normal LV function without any wall motion abnormalities. Recent stress test did not show any significant ischemia. Chest pain noncardiac. No further cardiac workup is indicated at this time. VELIA NIEVES APRN Feb 20, 2017 12:23 JANEL TALBERT MD Feb 20, 2017 16:49
[2017-02-20] MEDS: amLODIPine BESYLATE 10 MG TABLET PO SCH (13:24)
[2017-02-20] MEDS: CLOPIDOGREL BISULFATE 75 MG TABLET PO SCH (13:24)
[2017-02-20] MEDS: ISOSORBIDE MONONITRATE ER 30 MG TAB.ER.24H PO SCH (13:25)
[2017-02-20 15:07] VITALS: BP 151/48
[2017-02-20] MEDS ORDERED: HYDROcodone/APAP 5/325MG 1 TAB TABLET PO PRN (17:30)
[2017-02-20] MEDS ORDERED: DEXTROSE 50% 25 GM / 50ML DISP.SYRIN. IV PRN (17:45)
[2017-02-20 18:42] VITALS: BP 142/47
[2017-02-20] MEDS: IPRATRPIUM/ALBUTEROL 0.5/2.5MG 3 ML NEBU. NEB SCH (20:22)
[2017-02-20] MEDS: BUDESONIDE 0.5 MG/2 ML NEBU. NEB SCH (20:22)
[2017-02-20] MEDS ORDERED: INSULIN DETEMIR 300 UNITS/3 ML INSULN.PEN. SQ SCH (21:00)
[2017-02-20] MEDS: SIMVASTATIN 10 MG TABLET PO SCH (21:39)
[2017-02-20] MEDS: NYSTATIN 100,000 UNITS/ML 5 ML ORAL.SUSP. SWSW SCH (21:39)
[2017-02-20 23:08] VITALS: BP 145/38
[2017-02-20] MEDS: fentaNYL PF VIAL 100 MCG/2 ML VIAL IV PRN (23:33)
--- NOTE | 2017-02-21 03:33 | PN ---
DATE: 02/20/2017 SUBJECTIVE: The patient is resting slightly propped up in bed, in no apparent distress, who was seen yesterday in the Emergency Room of [facility] with severe pain that awakened her from sleep. Pain is mostly in the left side radiating to the back and her neck. CT scan of the chest, abdomen and pelvis showed no evidence of aortic dissection. She has so far 2 sets of cardiac enzymes, which were negative. She was seen in consultation by the Cardiology team and apparently planning to do an echocardiogram and also awaiting the records from [place] as apparently she has had stress test done there about a year ago. On questioning her, she denied any complaints. She said the pain has completely subsided. Denied any shortness of breath. OBJECTIVE: GENERAL: On examining her, she looked well and was clearly in no apparent respiratory distress, pale, but no jaundice, cyanosis, or thyromegaly. No jugular venous distention. No limb edema. VITAL SIGNS: Her heart rate was 62, blood pressure was 147/62, temperature was 99.6, respiratory rate was 18 and oxygen saturation was 98%. HEAD, EYES, EARS, NOSE AND THROAT: Showed normocephalic, atraumatic. NECK: Supple. HEART: Showed normal first and second heart sounds with no gallop, rub or murmur. CHEST: Clear to auscultation. No crepitation or rhonchi. ABDOMEN: Distended, soft, nontender. No guarding or rigidity. No organomegaly. Hernial orifices intact. Bowel sounds normal. NEUROLOGIC: She was awake, alert, responding appropriately. Cranial nerves intact. She moves extremities without difficulty. She ambulates without assistance or assistive devices. LABORATORY DATA: As of this morning showed that her troponin I was 0.017. Her triglycerides were 48. Total cholesterol 137, LDL cholesterol was 72. Her HDL cholesterol was 55 and the ratio was 2.5. IMPRESSION: In summary, this is an 81-year-old female patient who was admitted with chest pain that awakened her from sleep. She has so far EKG that is nondiagnostic. Her 2 sets of cardiac enzymes were less than 0.017. She was dialyzed yesterday as that is her scheduled hemodialysis day. She was seen by the Cardiology team. PLAN: To arrange for an echocardiogram and also await for the outcome of the stress test done in [facility] and decide on further management accordingly. ACOSTA VELÁSQUEZ MD DR: LEVI/darnell JOB#: [id number] / [id number]
[2017-02-21 03:37] VITALS: BP 138/51
[2017-02-21 06:00] LABS: HEMATOCRIT 30.9 % (36.0-47.0); HEMOGLOBIN 10.4 g/dL (12.0-15.5); RED BLOOD COUNT 3.18 x10^6/uL (3.50-5.40); RED CELL DISTRIBUTION WIDTH 13.7 % (11.5-14.5); WHITE BLOOD COUNT 8.4 x10^3/uL (4.0-11.0)
[2017-02-21 06:23] LABS: CREATININE 5.3 mg/dL (0.6-1.0); GFR 7.7; POTASSIUM 3.9 mmol/L (3.5-5.1)
[2017-02-21 07:00] VITALS: BP 127/61
[2017-02-21] MEDS ORDERED: LEVOTHYROXINE 100 MCG TABLET PO SCH (07:00)
[2017-02-21] MEDS ORDERED: PANTOPRAZOLE 40 MG TABLET.DR. PO SCH (07:30)
[2017-02-21] MEDS: BUDESONIDE 0.5 MG/2 ML NEBU. NEB SCH (07:50)
[2017-02-21] MEDS: IPRATRPIUM/ALBUTEROL 0.5/2.5MG 3 ML NEBU. NEB SCH ×2 (07:50→12:00)
[2017-02-21] MEDS: CALCIUM ACETATE 667 MG CAPSULE PO SCH ×3 (08:00→12:51)
[2017-02-21] MEDS: INSULIN ASPART 300 UNITS/3 ML INSULN.PEN SQ SCH ×2 (08:00→12:51)
[2017-02-21] MEDS ORDERED: LOSARTAN POTASSIUM 50 MG TABLET. PO SCH (09:00)
[2017-02-21] MEDS ORDERED: FLUTICASONE 50MCG/NASAL SPRAY 16GM BOTTLE. NS SCH (09:00)
[2017-02-21] MEDS ORDERED: CITALOPRAM 20 MG TABLET. PO SCH (09:00)
[2017-02-21] MEDS ORDERED: FOLIC ACID 1 MG TABLET. PO SCH (09:00)
[2017-02-21] MEDS ORDERED: NON FORMULARY ITEM (Omeprazole 1 CAP) PO SCH (09:00)
[2017-02-21] MEDS ORDERED: LISINOPRIL 20 MG TABLET PO SCH (09:00)
[2017-02-21] MEDS ORDERED: OMEGA-3 FATTY ACIDS/FISH OIL 1,000 MG CAPSULE. PO SCH (09:00)
[2017-02-21] MEDS ORDERED: IV NORMAL SALINE 1000ML BAG 1,000 ML IV PRN (10:02)
[2017-02-21] MEDS ORDERED: DIALYSIS PATIENT. MC PRN (10:15)
--- NOTE | 2017-02-21 11:10 | PDOC ---
Renal-Progress Notes Subjective Notes Notes FEELS WELL History of Present Illness Hx of present illness STABLE Vitals Vitals Vital Signs Date Time Temp Pulse Resp B/P (MAP) Pulse Ox O2 Delivery O2 Flow Rate FiO2 02/21/17 08:00 Room Air 02/21/17 07:55 94 02/21/17 07:00 98.4 76 22 127/61 (83) 2.0 98.4 Weight Weight [ ] Labs Labs Laboratory Tests Test 02/20/17 11:22 02/20/17 16:52 02/20/17 21:41 02/21/17 04:00 Glucose (Fingerstick) 117 mg/dL (70-99) 220 mg/dL (70-99) 145 mg/dL (70-99) White Blood Count 8.4 x10^3/uL (4.0-11.0) Red Blood Count 3.18 x10^6/uL (3.50-5.40) Hemoglobin 10.4 g/dL (12.0-15.5) Hematocrit 30.9 % (36.0-47.0) Mean Corpuscular Volume 97 fL (79-100) Mean Corpuscular Hemoglobin 33 pg (25-35) Mean Corpuscular Hemoglobin Concent 34 g/dL (31-37) Red Cell Distribution Width 13.7 % (11.5-14.5) Platelet Count 202 x10^3/uL (140-400) Sodium Level 135 mmol/L (136-145) Potassium Level 3.9 mmol/L (3.5-5.1) Chloride Level 96 mmol/L (98-107) Carbon Dioxide Level 28 mmol/L (21-32) Anion Gap 11 (6-14) Blood Urea Nitrogen 56 mg/dL (7-20) Creatinine 5.3 mg/dL (0.6-1.0) Estimated GFR (Cockcroft-Gault) 7.7 Glucose Level 102 mg/dL (70-99) Calcium Level 9.0 mg/dL (8.5-10.1) Test 02/21/17 07:06 Glucose (Fingerstick) 115 mg/dL (70-99) Review of Systems Constitutional: yes: weakness, alert, oriented Ears/Nose/Throat: Yes: no symptom reported Cardiovascular: Yes no symptom reported Genitourinary: Yes: no symptom reported Skin: Yes no symptom reported Endocrine: Yes: no symptom reported Physical Exam General Appearance: no apparent distress Skin: warm Respiratory: bilateral CTA Heart: S1S2 Abdomen: soft, bowel sounds present Genitourinary: bladder flat Neurology: alert, oriented, follow commands Assessment Assessment IMP CHEST PAIN ANEMIA HTN-CONTROLLED PLAN HD TODAY UF TO DW PROB D/C HOME TODAY JENARO PÉREZ MD Feb 21, 2017 11:10
[2017-02-21] MEDS: NYSTATIN 100,000 UNITS/ML 5 ML ORAL.SUSP. SWSW SCH ×2 (12:42→13:00)
--- NOTE | 2017-02-21 12:42 | DS ---
DATE OF DISCHARGE: 02/21/2017 HOSPITAL COURSE: The patient is an 81-year-old female patient with end-stage renal failure, hypertension and diastolic heart failure, who presented to Emergency Room of [facility] for evaluation of chest pain. She had pain started like a sore throat for which she was seen by her primary care physician and given a prescription for amoxicillin. She began taking this. On Friday, she developed a cough with clear sputum. However, she was awakened because of pain across her chest, shoulder and neck that was increased with cough and deep inspiration. She presented to the Emergency Room, where she was given nitroglycerin x 2, but denies improvement. She was subsequently given Fentanyl, which she reports improved her symptoms. She had associated mild dyspnea, nausea and apparently one episode of vomiting. She also complained of fever and chills over the last couple of days. She denies any significant increase in her weight from her dry weight. She normally sees Dr. Downs at [facility]. Apparently had a stress test and echo done last year and were reportedly normal. She has had a CT scan of the chest and abdomen without contrast, which showed no evidence of dissection. She has multiple sets of cardiac enzymes negative. She had an echocardiogram, which showed that her left ventricular systolic function is normal and ejection fraction of 55%. There is grossly normal left ventricular segmental wall motion, technically difficult study, precludes accurate wall motion assessment. Calculated aortic valve area is 1.2 square cm, likely underestimated, with maximum pressure gradient 26 mm, mean pressure gradient 15. Doppler and color flow analysis revealed mild aortic stenosis and mild mitral regurgitation. She was seen by the machine specialist as well as the printer slotter operator. The Cardiology team recommended no further cardiac workup. She has her scheduled dialysis done here in the hospital and will be discharged home to continue on all her current medications. PHYSICAL EXAMINATION: GENERAL: On examining her today, she looked well and was clearly in no apparent respiratory distress, pale, but no jaundice, cyanosis or thyromegaly. No jugular venous distention. No limb edema. VITAL SIGNS: Her heart rate was 76, blood pressure 127/61, temperature was 98.4, respiratory rate 22 and oxygen saturation was 95% on room air. HEENT: Examination of the head, eyes, ears, nose and throat showed normocephalic, atraumatic. NECK: Supple. HEART: Showed normal first and second heart sounds, with no gallop, rub or murmur. CHEST: Clear to auscultation. No crepitation or rhonchi. ABDOMEN: Distended, soft and nontender. No guarding or rigidity. No organomegaly. All hernial orifices intact. Bowel sounds normal. NEUROLOGIC: She is awake, alert, responding appropriately. Cranial nerves intact. She moves extremities without difficulty. She ambulates without assistance or assistive devices. She is completely anuric and hemodialysis dependent. LABORATORY DATA: Her lab work this morning showed a serum sodium 135, potassium 3.9, chloride 98, bicarbonate 28, anion gap of 11, BUN 56, creatinine 5.3, estimated GFR was 7.7, her glucose was 102 and calcium was 9. Her white cell count was 8400, hemoglobin 10, hematocrit 30, MCV 97 and platelet count 102,000. Her nasal screen for MRSA PCR was negative. DISCHARGE MEDICATIONS: She will be discharged home to continue on following medications: Amlodipine besylate for Norvasc 10 mg once a day, azilsartan medoxomil for Edarbi 80 mg tablet once a day, bifidobacterium infantis or digestive probiotic one capsule once a day, calcium acetate 667 mg 3 times a day with meals, Plavix 75 mg once a day, escitalopram oxalate 10 mg daily, fluticasone propionate for Flonase 2 sprays to each nostril once a day, Advair Diskus 250/50 one inhalation twice a day, folic acid 1 mg once a day, hydralazine 100 mg 3 times a day and hydrocodone/APAP 5/325 one tablet every 4 hours as needed. She is on Lantus insulin 10 units at bedtime. She is also on Humalog insulin as insulin sliding scale before meals, ipratropium bromide, albuterol inhaler for DuoNeb 3 mL 4 times a day, isosorbide mononitrate 30 mg once a day, levothyroxine sodium 100 mcg once a day, Nystatin swish and swallow 4 times a day, Restore capsule 1 capsule once a day, omeprazole 20 mg once a day, Protonix 40 mg once a day and simvastatin for Zocor 10 mg at bedtime. FINAL DISCHARGE DIAGNOSES: Chest pain, myocardial infarction ruled out; diastolic congestive heart failure; hypertension; hyperlipidemia; hypothyroidism; anemia of chronic kidney disease and end-stage renal disease, on hemodialysis Friday, Friday and Friday. FOLLOWUP: The patient will follow with her printer slotter operator, Dr. Downs, at [place] and her primary care physician and continue with her outpatient hemodialysis. ACOSTA VELÁSQUEZ MD DR: LEVI/darnell JOB#: [id number] / [id number]
[2017-02-21] MEDS: CLOPIDOGREL BISULFATE 75 MG TABLET PO SCH (12:45)
[2017-02-21] MEDS: amLODIPine BESYLATE 10 MG TABLET PO SCH (12:47)
[2017-02-21] MEDS: ISOSORBIDE MONONITRATE ER 30 MG TAB.ER.24H PO SCH (12:49)
--- NOTE | 2017-02-21 12:57 | PDOC ---
PAULETTE FAYE FILTER HELPER 02/21/17 1257: CARDIO Progress Notes Date and Time Date of Service 02/21/17 Time of Evaluation 1120 Subjective Subjective: No Chest Pain, No shortness of breath, No Palpitations Comments: seen on HD Vitals Vitals Vital Signs Date Time Temp Pulse Resp B/P (MAP) Pulse Ox O2 Delivery O2 Flow Rate FiO2 02/21/17 12:52 95 02/21/17 12:52 61 152/58 02/21/17 08:00 Room Air 02/21/17 07:00 98.4 22 2.0 98.4 Weight Weight [ ] Laboratory Labs Laboratory Tests Test 02/20/17 16:52 02/20/17 21:41 02/21/17 04:00 02/21/17 07:06 Glucose (Fingerstick) 220 mg/dL (70-99) 145 mg/dL (70-99) 115 mg/dL (70-99) White Blood Count 8.4 x10^3/uL (4.0-11.0) Red Blood Count 3.18 x10^6/uL (3.50-5.40) Hemoglobin 10.4 g/dL (12.0-15.5) Hematocrit 30.9 % (36.0-47.0) Mean Corpuscular Volume 97 fL (79-100) Mean Corpuscular Hemoglobin 33 pg (25-35) Mean Corpuscular Hemoglobin Concent 34 g/dL (31-37) Red Cell Distribution Width 13.7 % (11.5-14.5) Platelet Count 202 x10^3/uL (140-400) Sodium Level 135 mmol/L (136-145) Potassium Level 3.9 mmol/L (3.5-5.1) Chloride Level 96 mmol/L (98-107) Carbon Dioxide Level 28 mmol/L (21-32) Anion Gap 11 (6-14) Blood Urea Nitrogen 56 mg/dL (7-20) Creatinine 5.3 mg/dL (0.6-1.0) Estimated GFR (Cockcroft-Gault) 7.7 Glucose Level 102 mg/dL (70-99) Calcium Level 9.0 mg/dL (8.5-10.1) Test 02/21/17 12:35 Glucose (Fingerstick) 125 mg/dL (70-99) Review of Systems Constitutional: yes: weakness, alert, oriented Ears/Nose/Throat: Yes: no symptom reported Cardiovascular: Yes no symptom reported Genitourinary: Yes: no symptom reported Skin: Yes no symptom reported Endocrine: Yes: no symptom reported Physical Exam HEENT: Neck Supple W Full Motion Chest: Symmetric LUNGS: Clear to Auscultation, Other (diminished bases) Heart: S1S2, RRR (tele SR ) Abdomen: Soft N/T Extremities: No Calf Tenderness Neurology: alert, oriented, follow commands Assessment Assessment 1. Chest pain, atypical. Echo with preserved LV function. No WMA noted. Recent stress test without ischemia 2. Accelerated hypertension: now better controlled. Continue present treatment 3. Acute on chronic diastolic HF: compensated. Continue fluid offloading/ management via HD as per nephrology 4. ESRD on HD 5. Mild Recommendations May discharge from a CV standpoint and f/u with routine inspector publications in 4 weeks. JANEL TALBERT MD 02/21/17 1435: CARDIO Progress Notes Assessment Assessment Patient seen and examined. Agree with TOP LIFT NAILER's assessment and plan. Chest pain noncardiac. Blood pressure better controlled. Follow-up with primary inspector publications. PAULETTE FAYE APRN Feb 21, 2017 12:57 JANEL TALBERT MD Feb 21, 2017 14:35
[2017-02-21] MEDS ORDERED: ESCITALOPRAM OX10 MG PO (13:36)
[2017-02-21 14:38] VITALS: BP 122/54
[2017-02-27] MEDS ORDERED: DARBEPOETIN ALFA 60 MCG/0.3 ML DISP.SYRIN. SQ SCH (21:00)
== END 2017-02-21 15:59 | disposition home or self-care (01) | DRG 291 ==
LOC: 2 NORTH 12:32
PROVIDERS: ADMIT Internal Medicine; ATTEND Internal Medicine
PROC: 5A1D70Z Performance of Urinary Filtration, Intermittent, Less than 6 Hours Per Day (ICD-10-PCS; principal; 2017-02-20)
DX: I50.33 Acute on chronic diastolic (congestive) heart failure (principal); N18.6 End stage renal disease; E11.22 Type 2 diabetes mellitus with diabetic chronic kidney disease; I13.2 Hypertensive heart and chronic kidney disease with heart failure and with stage 5 chronic kidney disease, or end stage renal disease; R07.89 Other chest pain; I25.10 Atherosclerotic heart disease of native coronary artery without angina pectoris; E78.5 Hyperlipidemia, unspecified; K21.9 Gastro-esophageal reflux disease without esophagitis; E03.9 Hypothyroidism, unspecified; F41.9 Anxiety disorder, unspecified; M19.90 Unspecified osteoarthritis, unspecified site; E21.3 Hyperparathyroidism, unspecified; D63.1 Anemia in chronic kidney disease; Z99.2 Dependence on renal dialysis; Z90.49 Acquired absence of other specified parts of digestive tract; Z82.49 Family history of ischemic heart disease and other diseases of the circulatory system; Z86.14 Personal history of Methicillin resistant Staphylococcus aureus infection; J06.9 Acute upper respiratory infection, unspecified
CPT/HCPCS: 36415; 80048; 80053; 80061; 82962; 83735; 84484; 85025; 85027; 87641; 93005; 93306; 94250; 94640; 94760; J1815; J3010; J7620; J7626

== ENCOUNTER → 2017-05-08 | Outpatient (CLI) | payer MEDICARE | END | disposition home or self-care (01) | LOC: KCIC MRI 11:09 | DX: M51.36 Other intervertebral disc degeneration, lumbar region (principal); M48.061 Spinal stenosis, lumbar region without neurogenic claudication; M24.28 Disorder of ligament, vertebrae; M51.26 Other intervertebral disc displacement, lumbar region | CPT/HCPCS: 72148 ==

== ENCOUNTER 2017-06-27 17:28 | Inpatient (IN) | payer MEDICARE ==
[2017-06-27] MEDS ORDERED: CETIRIZINE HCL 10 MG TABLET. PO (18:00)
[2017-06-27] MEDS ORDERED: ONDANSETRON PF 4 MG/2 ML VIAL. IV (18:15)
[2017-06-27] MEDS ORDERED: ACETAMINOPHEN 325 MG TABLET. PO (18:15)
[2017-06-27] MEDS ORDERED: fentaNYL PF VIAL 100 MCG/2 ML VIAL IV (18:15)
[2017-06-27] MEDS: CITALOPRAM 20 MG TABLET. PO (18:30)
[2017-06-27] MEDS: FENOFIBRATE 54 MG TABLET. PO (18:30)
[2017-06-27] MEDS: LISINOPRIL 20 MG TABLET PO (18:30)
[2017-06-27] MEDS: VITAMIN B12,B9,B6 COMPLEX 1 TABLET. PO (18:30)
[2017-06-27] MEDS: FUROSEMIDE 80 MG TABLET. PO (18:30)
[2017-06-27] MEDS: FOLIC/VIT B COMP W-C (RENAL) TABLET. PO (18:30)
[2017-06-27] MEDS: PANTOPRAZOLE 40 MG TABLET.DR. PO (18:43)
[2017-06-27] MEDS: CLOPIDOGREL BISULFATE 75 MG TABLET PO (18:43)
[2017-06-27] MEDS ORDERED: HYDROcodone/APAP 5/325MG 1 TAB TABLET PO (20:00)
[2017-06-27] MEDS ORDERED: ACETAMINOPHEN 500 MG TABLET PO ×2 (21:00)
[2017-06-27] MEDS ORDERED: AMITRIPTYLINE HCL 50 MG TABLET PO (21:00)
[2017-06-27] MEDS: INSULIN DETEMIR 300 UNITS/3 ML INSULN.PEN. SQ (21:00)
[2017-06-27] MEDS ORDERED: ATORVASTATIN CALCIUM 20 MG TABLET PO (21:00)
[2017-06-27] MEDS ORDERED: INSULIN DETEMIR 300 UNITS/3 ML INSULN.PEN. SQ (21:00)
[2017-06-27] MEDS: busPIRone 10 MG TABLET. PO (21:00)
[2017-06-27] MEDS: diphenhydrAMINE HCL 25 MG CAPSULE PO (21:00)
[2017-06-27] MEDS: ACETAMINOPHEN 500 MG TABLET PO (21:00)
[2017-06-27] MEDS: SIMVASTATIN 40 MG TABLET. PO (21:28)
[2017-06-27 21:51] LABS: POC GLUCOSE 117 mg/dL (70-99)
[2017-06-28] MEDS: LORazepam 0.5 MG TABLET PO ×3 (02:47→20:29)
[2017-06-28] MEDS ORDERED: CLOPIDOGREL BISULFATE 75 MG TABLET PO (07:00)
[2017-06-28] MEDS: CLOPIDOGREL BISULFATE 75 MG TABLET PO (07:05)
[2017-06-28] MEDS: LEVOTHYROXINE 100 MCG TABLET PO (07:05)
[2017-06-28] MEDS: PANTOPRAZOLE 40 MG TABLET.DR. PO (07:05)
[2017-06-28] MEDS: INSULIN ASPART 300 UNITS/3 ML INSULN.PEN SQ ×3 (07:30→16:30)
[2017-06-28] MEDS: CALCIUM ACETATE 667 MG CAPSULE PO ×3 (08:00→17:00)
[2017-06-28 08:05] LABS: POC GLUCOSE 124 mg/dL (70-99)
[2017-06-28] MEDS ORDERED: PANTOPRAZOLE SODIUM PO (09:00)
[2017-06-28] MEDS: busPIRone 10 MG TABLET. PO ×2 (09:00→20:30)
[2017-06-28] MEDS ORDERED: NON FORMULARY ITEM (Escitalopram Oxalate 1 TAB) PO (09:00)
[2017-06-28] MEDS: ASPIRIN 325 MG TABLET PO (09:18)
[2017-06-28] MEDS: CITALOPRAM 20 MG TABLET. PO (09:18)
[2017-06-28] MEDS: REGADENOSON 0.4 MG/5 ML DISP.SYRIN. IV (09:45)
[2017-06-28 11:05] LABS: POC GLUCOSE 119 mg/dL (70-99)
[2017-06-28 16:58] LABS: POC GLUCOSE 180 mg/dL (70-99)
[2017-06-28] MEDS: SIMVASTATIN 40 MG TABLET. PO (20:29)
[2017-06-28] MEDS: ACETAMINOPHEN 500 MG TABLET PO (20:29)
[2017-06-28] MEDS: diphenhydrAMINE HCL 25 MG CAPSULE PO (20:30)
[2017-06-28] MEDS: INSULIN DETEMIR 300 UNITS/3 ML INSULN.PEN. SQ (20:35)
[2017-06-28 20:36] LABS: POC GLUCOSE 205 mg/dL (70-99)
[2017-06-29] MEDS: CLOPIDOGREL BISULFATE 75 MG TABLET PO ×2 (06:33→08:39)
[2017-06-29] MEDS: LEVOTHYROXINE 100 MCG TABLET PO (06:33)
[2017-06-29] MEDS: PANTOPRAZOLE 40 MG TABLET.DR. PO (06:33)
[2017-06-29] MEDS: INSULIN ASPART 300 UNITS/3 ML INSULN.PEN SQ (07:30)
[2017-06-29 07:41] LABS: POC GLUCOSE 97 mg/dL (70-99)
[2017-06-29] MEDS: CALCIUM ACETATE 667 MG CAPSULE PO (08:39)
[2017-06-29] MEDS: ASPIRIN 325 MG TABLET PO (08:40)
[2017-06-29] MEDS: CITALOPRAM 20 MG TABLET. PO (08:40)
[2017-06-29] MEDS: busPIRone 10 MG TABLET. PO (08:45)
[2017-06-29 11:05] LABS: POC GLUCOSE 155 mg/dL (70-99)
[2017-06-29] MEDS: LORazepam 0.5 MG TABLET PO (12:13)
[2017-06-30 08:11] LABS: POC GLUCOSE 151 mg/dL (70-99)
== END 2017-06-29 12:40 | disposition home or self-care (01) | DRG 302 ==
LOC: 2 SOUTH 17:28
PROVIDERS: Internal Medicine
DX: I25.10 Atherosclerotic heart disease of native coronary artery without angina pectoris (principal); N18.6 End stage renal disease; I13.2 Hypertensive heart and chronic kidney disease with heart failure and with stage 5 chronic kidney disease, or end stage renal disease; E11.21 Type 2 diabetes mellitus with diabetic nephropathy; I42.0 Dilated cardiomyopathy; N25.81 Secondary hyperparathyroidism of renal origin; I50.32 Chronic diastolic (congestive) heart failure; R07.9 Chest pain, unspecified; I25.84 Coronary atherosclerosis due to calcified coronary lesion; D63.1 Anemia in chronic kidney disease; E03.9 Hypothyroidism, unspecified; K21.9 Gastro-esophageal reflux disease without esophagitis; E11.22 Type 2 diabetes mellitus with diabetic chronic kidney disease; M19.90 Unspecified osteoarthritis, unspecified site; E78.5 Hyperlipidemia, unspecified; E21.3 Hyperparathyroidism, unspecified; F41.9 Anxiety disorder, unspecified; I25.2 Old myocardial infarction; Z86.14 Personal history of Methicillin resistant Staphylococcus aureus infection; Z95.5 Presence of coronary angioplasty implant and graft; Z99.2 Dependence on renal dialysis; Z98.49 Cataract extraction status, unspecified eye
CPT/HCPCS: 78452; 82962; 93017; 96374; 96375; 96376; A9500; J1815; J2785

== ENCOUNTER → 2017-09-15 | Outpatient (CLI) | payer MEDICARE | END | disposition home or self-care (01) | LOC: PMGWOUND 12:40 | DX: S81.001A Unspecified open wound, right knee, initial encounter (principal); S51.812A Laceration without foreign body of left forearm, initial encounter; I25.10 Atherosclerotic heart disease of native coronary artery without angina pectoris; F41.9 Anxiety disorder, unspecified; K21.9 Gastro-esophageal reflux disease without esophagitis; M19.90 Unspecified osteoarthritis, unspecified site; E11.40 Type 2 diabetes mellitus with diabetic neuropathy, unspecified; I25.2 Old myocardial infarction; E11.22 Type 2 diabetes mellitus with diabetic chronic kidney disease; I13.2 Hypertensive heart and chronic kidney disease with heart failure and with stage 5 chronic kidney disease, or end stage renal disease; I50.32 Chronic diastolic (congestive) heart failure; N18.6 End stage renal disease; E03.9 Hypothyroidism, unspecified; E21.3 Hyperparathyroidism, unspecified; Z99.2 Dependence on renal dialysis; Z95.5 Presence of coronary angioplasty implant and graft; Z79.4 Long term (current) use of insulin; W19.XXXA Unspecified fall, initial encounter; Y93.9 Activity, unspecified; Y99.8 Other external cause status; Y92.9 Unspecified place or not applicable | CPT/HCPCS: 99214 ==

== ENCOUNTER → 2017-10-02 | Outpatient (CLI) | payer MEDICARE | END | disposition home or self-care (01) | LOC: PMGWOUND 10:40 | DX: S81.001D Unspecified open wound, right knee, subsequent encounter (principal); F41.9 Anxiety disorder, unspecified; E11.622 Type 2 diabetes mellitus with other skin ulcer; I25.10 Atherosclerotic heart disease of native coronary artery without angina pectoris; K21.9 Gastro-esophageal reflux disease without esophagitis; E11.22 Type 2 diabetes mellitus with diabetic chronic kidney disease; I13.2 Hypertensive heart and chronic kidney disease with heart failure and with stage 5 chronic kidney disease, or end stage renal disease; N18.6 End stage renal disease; I50.32 Chronic diastolic (congestive) heart failure; E21.3 Hyperparathyroidism, unspecified; E03.9 Hypothyroidism, unspecified; I25.2 Old myocardial infarction; E11.40 Type 2 diabetes mellitus with diabetic neuropathy, unspecified; M19.90 Unspecified osteoarthritis, unspecified site; Z99.2 Dependence on renal dialysis; Z79.4 Long term (current) use of insulin; X58.XXXD Exposure to other specified factors, subsequent encounter | CPT/HCPCS: 97597 ==

== ENCOUNTER → 2017-10-09 | Outpatient (CLI) | payer MEDICARE | END | disposition home or self-care (01) | LOC: PMGWOUND 09:30 | DX: S81.001D Unspecified open wound, right knee, subsequent encounter (principal); F41.9 Anxiety disorder, unspecified; I25.10 Atherosclerotic heart disease of native coronary artery without angina pectoris; K21.9 Gastro-esophageal reflux disease without esophagitis; E11.22 Type 2 diabetes mellitus with diabetic chronic kidney disease; I13.2 Hypertensive heart and chronic kidney disease with heart failure and with stage 5 chronic kidney disease, or end stage renal disease; N18.6 End stage renal disease; I50.32 Chronic diastolic (congestive) heart failure; E21.3 Hyperparathyroidism, unspecified; E78.5 Hyperlipidemia, unspecified; E03.9 Hypothyroidism, unspecified; I25.2 Old myocardial infarction; E11.40 Type 2 diabetes mellitus with diabetic neuropathy, unspecified; M19.90 Unspecified osteoarthritis, unspecified site; Z99.2 Dependence on renal dialysis; Z79.4 Long term (current) use of insulin; Z95.5 Presence of coronary angioplasty implant and graft; X58.XXXD Exposure to other specified factors, subsequent encounter | CPT/HCPCS: 99213 ==

== ENCOUNTER → 2017-10-16 | Outpatient (CLI) | payer MEDICARE | END | disposition home or self-care (01) | LOC: PMGWOUND 09:39 | DX: S81.001D Unspecified open wound, right knee, subsequent encounter (principal); F41.9 Anxiety disorder, unspecified; I25.10 Atherosclerotic heart disease of native coronary artery without angina pectoris; K21.9 Gastro-esophageal reflux disease without esophagitis; E11.22 Type 2 diabetes mellitus with diabetic chronic kidney disease; I13.2 Hypertensive heart and chronic kidney disease with heart failure and with stage 5 chronic kidney disease, or end stage renal disease; N18.6 End stage renal disease; I50.32 Chronic diastolic (congestive) heart failure; E21.3 Hyperparathyroidism, unspecified; E03.9 Hypothyroidism, unspecified; I25.2 Old myocardial infarction; E11.40 Type 2 diabetes mellitus with diabetic neuropathy, unspecified; M19.90 Unspecified osteoarthritis, unspecified site; E78.5 Hyperlipidemia, unspecified; Z95.5 Presence of coronary angioplasty implant and graft; Z99.2 Dependence on renal dialysis; Z79.4 Long term (current) use of insulin; X58.XXXD Exposure to other specified factors, subsequent encounter | CPT/HCPCS: 99214 ==

== ENCOUNTER → 2017-10-30 | Outpatient (CLI) | payer MEDICARE | END | disposition home or self-care (01) | LOC: PMGWOUND 09:27 | DX: S81.001D Unspecified open wound, right knee, subsequent encounter (principal); F41.9 Anxiety disorder, unspecified; I25.10 Atherosclerotic heart disease of native coronary artery without angina pectoris; K21.9 Gastro-esophageal reflux disease without esophagitis; E11.22 Type 2 diabetes mellitus with diabetic chronic kidney disease; I13.2 Hypertensive heart and chronic kidney disease with heart failure and with stage 5 chronic kidney disease, or end stage renal disease; N18.6 End stage renal disease; I50.32 Chronic diastolic (congestive) heart failure; E21.3 Hyperparathyroidism, unspecified; E78.5 Hyperlipidemia, unspecified; E03.9 Hypothyroidism, unspecified; I25.2 Old myocardial infarction; E11.40 Type 2 diabetes mellitus with diabetic neuropathy, unspecified; M19.90 Unspecified osteoarthritis, unspecified site; Z99.2 Dependence on renal dialysis; Z79.4 Long term (current) use of insulin; Z95.5 Presence of coronary angioplasty implant and graft; Z85.89 Personal history of malignant neoplasm of other organs and systems; W19.XXXD Unspecified fall, subsequent encounter | CPT/HCPCS: 99214 ==

== ENCOUNTER → 2017-12-16 | Outpatient (CLI) | payer MEDICARE | END | disposition home or self-care (01) | LOC: PMGWOUND 08:30 | DX: S81.001D Unspecified open wound, right knee, subsequent encounter (principal); F41.9 Anxiety disorder, unspecified; I25.10 Atherosclerotic heart disease of native coronary artery without angina pectoris; K21.9 Gastro-esophageal reflux disease without esophagitis; E11.22 Type 2 diabetes mellitus with diabetic chronic kidney disease; I13.2 Hypertensive heart and chronic kidney disease with heart failure and with stage 5 chronic kidney disease, or end stage renal disease; N18.6 End stage renal disease; I50.32 Chronic diastolic (congestive) heart failure; E21.3 Hyperparathyroidism, unspecified; E78.5 Hyperlipidemia, unspecified; E03.9 Hypothyroidism, unspecified; I25.2 Old myocardial infarction; E11.40 Type 2 diabetes mellitus with diabetic neuropathy, unspecified; M19.90 Unspecified osteoarthritis, unspecified site; Z99.2 Dependence on renal dialysis; Z79.4 Long term (current) use of insulin; Z95.5 Presence of coronary angioplasty implant and graft; Z85.89 Personal history of malignant neoplasm of other organs and systems; W19.XXXD Unspecified fall, subsequent encounter | CPT/HCPCS: 99213 ==

== ENCOUNTER → 2019-10-21 | Outpatient (CLI) | payer MEDICARE ==
[2017-06-29 11:20] VITALS: BP 146/52
[~2019-10-21] MED LIST changes: +ACET500T33 PO; +ALBU2.5V14 NEB; +ASPI325T8 PO; +BUSP10TA PO; +CALC667T4 PO; +CYAN25008 OS; +ESCITALOPRAM OX20 MG PO; +FENO48TA16 PO; +FOLI0.8C PO; +GLAUCOMA DROPS; +HYDR-2761 PO; +HYDR-3164 PO; -INSU100V SQ; +INSU100V13 SQ; +INSU100V6 SQ; -IPRA3AMP NEB; +IPRA3AMP29 NEB; +LATA2.5D3 EACHEYE; +LEVO100T5 PO; +LISI-130 PO; -LISI40TA PO; +LORA0.5T96 PO; +METO25TA4 PO; +OM-31CAP7 PO; +OMEP20CA16 PO; -OMEP20CA9 PO; +OMEP20TA8 PO; +OMEP40CA45 PO; -OMEP40CA5 PO; +PANT20TA2 PO; -PANT40TA5 PO; +PANT40TA77 PO; +SIMV40TA PO; +TIMO10DR5 EACHEYE; +TYLENOL PM PO; +VIT1TABL2 PO; +VIT1TABL91 PO
[2019-10-21 14:12] LABS: BASO % 1 % (0-3); EOS # 0.2 x10^3/uL (0.0-0.7); EOS % 2 % (0-3); HEMATOCRIT 33.8 % (36.0-47.0); HEMOGLOBIN 11.3 g/dL (12.0-15.5); LYMPH # 1.6 x10^3/uL (1.0-4.8); LYMPH % 24 % (24-48); MEAN CORPUSCULAR HEMOGLOBIN 33 pg (25-35); MEAN CORPUSCULAR HGB CONC 34 g/dL (31-37); MEAN CORPUSCULAR VOLUME 98 fL (79-100); MONO # 0.6 x10^3/uL (0.0-1.1); MONO % 8 % (0-9); NEUT # 4.5 x10^3/uL (1.8-7.7); NEUT % 65 % (31-73); PLATELET COUNT 174 x10^3/uL (140-400); RED BLOOD COUNT 3.44 x10^6/uL (3.50-5.40); RED CELL DISTRIBUTION WIDTH 13.7 % (11.5-14.5); WHITE BLOOD COUNT 6.8 x10^3/uL (4.0-11.0)
[2019-10-21 14:22] LABS: ALBUMIN 3.6 g/dL (3.4-5.0); CALCIUM 9.5 mg/dL (8.5-10.1); CREATININE 4.7 mg/dL (0.6-1.0); GFR 8.9; POTASSIUM 3.9 mmol/L (3.5-5.1)
== END | disposition home or self-care (01) ==
LOC: SURGPAT 12:07
PROVIDERS: ATTEND Surgery
DX: Z01.818 Encounter for other preprocedural examination (principal); U07.1 COVID-19; N18.6 End stage renal disease
CPT/HCPCS: 36415; 80048; 82040; 85025; C9803; U0003

== ENCOUNTER 2019-12-07 07:38 | Day surgery (SDC) | payer MEDICARE ==
[~2019-12-07] VITALS: Ht 172.7 cm; Wt 71.7 kg
[~2019-12-07 07:38] MED LIST changes: -HYDR-3164 PO; +HYDROmorphone 2 MG/ML VIAL IV PRN; +LIDOCAINE 1% PF 2 ML VIAL. ID PRN; +MORPHINE SULFATE 2 MG/ML VIAL. IV PRN; +ONDANSETRON PF 4 MG/2 ML VIAL. IV PRN; +PROCHLORPERAZINE 10 MG/2 ML VIAL. IV PRN; +fentaNYL PF VIAL 100 MCG/2 ML VIAL IV PRN
[2019-12-07] MEDS ORDERED: INSULIN LISPRO 100 UNIT/ML 3ML VIAL for OP,RR ONLY. SQ PRN (07:45)
[2019-12-07] MEDS ORDERED: IV NORMAL SALINE 1000ML BAG 1,000 ML IV ONE (07:45)
[2019-12-07] MEDS ORDERED: HEPARIN SODIUM 1,000 UNIT in IV NORMAL SALINE 100ML 100 ML IRR ONE (08:00)
[2019-12-07] MEDS ORDERED: ONDANSETRON PF 4 MG/2 ML VIAL. ONE (08:20)
[2019-12-07] MEDS ORDERED: LIDOCAINE 2% PF 5 ML VIAL. ONE (08:20)
[2019-12-07] MEDS ORDERED: PROPOFOL 10 MG/ML (20ML) VIAL. IV ONE (08:20)
[2019-12-07] MEDS ORDERED: DEXAMETHASONE SOD PHOS 4 MG/ML VIAL ONE (08:20)
[2019-12-07] MEDS ORDERED: ROCURONIUM 50 MG/5 ML VIAL. ONE (08:21)
[2019-12-07] MEDS ORDERED: fentaNYL PF VIAL 100 MCG/2 ML VIAL ONE (08:21)
[2019-12-07] MEDS ORDERED: PHENYLEPHRINE in 0.9% NACL PF 1 MG/10 ML SYRINGE. IV ONE (08:33)
[2019-12-07] MEDS: IV RINGERS,LACTATED 1000ML 1,000 ML IV SCH ×2 (08:45→08:46)
[2019-12-07 09:02] LABS: CALCIUM 9.2 mg/dL (8.5-10.1); CREATININE 4.2 mg/dL (0.6-1.0); GFR 10.1; POTASSIUM 3.8 mmol/L (3.5-5.1)
[2019-12-07] MEDS ORDERED: ePHEDrine PF IN SALINE 50 MG/10 ML SYRINGE. IV ONE (09:31)
[2019-12-07] MEDS ORDERED: GLYCOPYRROLATE 1 MG/5 ML VIAL. ONE (09:42)
[2019-12-07] MEDS ORDERED: NEOSTIGMINE METHYLSULFATE 5 MG/5 ML SYRINGE. ONE (09:43)
[2019-12-07] MEDS ORDERED: ceFAZolin 2GM PREMIX 2 GM/50 ML BAG IV ONE (10:00)
[2019-12-07] MEDS ORDERED: SEVOFLURANE 31 TO 60 MINUTES. IH ONE (10:03)
--- NOTE | 2019-12-07 10:12 | PDOC4 ---
Operative Note Operative Note OPERATIVE NOTE: PREOPERATIVE DIAGNOSIS: Renal failure. POSTOPERATIVE DIAGNOSIS: Renal failure. PROCEDURE: Laparoscopic peritoneal dialysis catheter placement. SURGEON: Corwin Rahman MD ANESTHESIA: General. ESTIMATED BLOOD LOSS: 10 mL. SPECIMENS: None. DRAINS: None. COMPLICATIONS: None. INDICATIONS: The patient is am 84 year old female who was referred for placement of a peritoneal dialysis catheter due to progressive renal failure. The details and risks of surgery were discussed with the patient. The risks of surgery include bleeding, infection, visceral injury, pain, anesthetic risk, potential need for additional surgery or procedure. In addition, the patient is aware of the potential for catheter malfunction or dysfunction and possibility of needing revision, replacement, or removal of the catheter. They understand all this and would like to proceed. DESCRIPTION OF PROCEDURE: The patient was brought to the operating room and placed supine on the operating table. General anesthesia was performed. The abdomen was prepped with ChloraPrep and draped in a standard surgical manner. A small incision was made in the patient's left upper quadrant through which a visualized 5-mm trocar was inserted. A pneumoperitoneum was then created and the laparoscope was introduced. Initial inspection showed no significant adhesions or any other gross abnormalities. Using the placement template, the left abdomen was marked with a planned catheter exit site in the LLQ. A small incision was made to the left of the patient's midline at the marked location for the exit site of the cuff. An 8-mm trocar was inserted through this location. The coiled portion of the lower catheter was then inserted into the pelvis under direct visualization. The cuff was positioned in the rectus musculature. The coiled portion rested well in the inferior mid pelvis. The pneumoperitoneum was then relieved. An incision was then made in the left lower quadrant at the planned exit site. The proximal portion of the catheter was tunnelled subcutaneously to the exit site. The proximal cuff remained in the subcutaneous tissue a few cm away from the exit site. The catheter was then assembled to IV tubing and tested by infusing a liter of saline. The saline passed easily into the abdomen and the bag was placed on the floor. Nearly all of the saline readily was retrieved with prompt flow. The abdominal cavity was then reinsufflated and the laparoscope was reintroduced showing no change in the catheter position and the cuff remained in the rectus. The pneumoperitoneum was relieved and the ports were removed. The catheter was then assembled to the connector tubing as per the dialysis instructions. All the incision sites were closed with 4-0 Monocryl. Steri-Strips and sterile dressing were then applied. The patient tolerated procedure well and was sent to the recovery room in stable condition. At the end of the case all counts were correct. CORWIN RAHMAN MD Dec 07, 2019 10:12
[2019-12-07] MEDS ORDERED: HYDROcodone/APAP 5/325MG 1 TAB TABLET PO PRN (10:15)
--- NOTE | 2019-12-07 10:15 | DISCH ---
DISCHARGE INSTRUCTIONS Condition on Discharge Condition on Discharge: Stable Activity After Discharge Activity Instructions for Disc: Other, see below (no lifting over 20 lbs X 2 weeks) Diet after Discharge Diet after Discharge: Regular Follow-Up Follow up with: Dialysis center, call for appointment MIGUEL RAHMAN MD Dec 07, 2019 10:15
[2019-12-07] MEDS ORDERED: INSULIN LISPRO 100 UNIT/ML 3ML VIAL for OP,RR ONLY. SQ ONE (10:30)
[2019-12-07] MEDS ORDERED: HYDR-3164 PO (10:35)
[2019-12-07 11:00] VITALS: BP 154/48
== END 2019-12-07 11:20 | disposition home or self-care (01) ==
LOC: SURG 07:38
PROVIDERS: ATTEND Surgery
DX: I12.0 Hypertensive chronic kidney disease with stage 5 chronic kidney disease or end stage renal disease (principal); E11.22 Type 2 diabetes mellitus with diabetic chronic kidney disease; N18.9 Chronic kidney disease, unspecified; Z11.59 Encounter for screening for other viral diseases; I10 Essential (primary) hypertension; E11.9 Type 2 diabetes mellitus without complications; E78.5 Hyperlipidemia, unspecified; Z90.49 Acquired absence of other specified parts of digestive tract; Z98.890 Other specified postprocedural states; Z79.899 Other long term (current) drug therapy; Z82.49 Family history of ischemic heart disease and other diseases of the circulatory system; Z79.4 Long term (current) use of insulin
CPT/HCPCS: 49324; 80048; 82962; 87426; C1750; J0690; J1100; J1644; J1815; J2405; J2704; J2710; J3010; J3490; J7030; U0003; J2370

== ENCOUNTER 2020-04-17 09:49 | Day surgery (SDC) | payer MEDICARE ==
[~2020-04-17] VITALS: Ht 160 cm; Wt 73.0 kg
[~2020-04-17 09:49] MED LIST changes: +BUPIVACAINE-EPI 0.5%-1:200000 MPF 30 ML VIAL. INJ ONE; +FOLI0.8T30 PO; +HYDR-3164 PO; +IV NORMAL SALINE 1000ML BAG 1,000 ML IV SCH; -LIDOCAINE 1% PF 2 ML VIAL. ID PRN; -ONDANSETRON PF 4 MG/2 ML VIAL. IV PRN; +TIMO10DR5 OS
[2020-04-17] MEDS ORDERED: INSULIN LISPRO 100 UNIT/ML 3ML VIAL for OP,RR ONLY. SQ PRN (10:30)
[2020-04-17] MEDS ORDERED: DEXAMETHASONE SOD PHOS 4 MG/ML VIAL ONE (10:37)
[2020-04-17] MEDS ORDERED: PROPOFOL 10 MG/ML (20ML) VIAL. IV ONE (10:37)
[2020-04-17] MEDS ORDERED: LIDOCAINE 2% PF 5 ML VIAL. ONE (10:37)
[2020-04-17] MEDS ORDERED: ROCURONIUM 50 MG/5 ML VIAL. ONE (10:37)
[2020-04-17] MEDS ORDERED: ONDANSETRON PF 4 MG/2 ML VIAL. ONE (10:37)
[2020-04-17 11:10] LABS: CALCIUM 9.5 mg/dL (8.5-10.1); CREATININE 5.6 mg/dL (0.6-1.0); GFR 7.2; POTASSIUM 5.2 mmol/L (3.5-5.1)
[2020-04-17] MEDS ORDERED: GLYCOPYRROLATE 1 MG/5 ML VIAL. ONE (13:16)
[2020-04-17] MEDS ORDERED: NEOSTIGMINE METHYLSULFATE 5 MG/5 ML SYRINGE. ONE (13:16)
[2020-04-17] MEDS ORDERED: SEVOFLURANE 31 TO 60 MINUTES. IH ONE (13:19)
--- NOTE | 2020-04-17 13:32 | PDOC4 ---
Operative Note Operative Note Operative Note: Preoperative Diagnosis: Renal failure, unable to tolerate peritoneal dialysis Postoperative Diagnosis: Same Procedure: Removal of peritoneal dialysis catheter Surgeon: Jose Guide Excursion: Reynaldo RUIZ Anesthesia: General EBL: 10 mL Specimen: Catheter to pathology Drains: None Complications: None Indication: The patient is an 84-year-old female who had a peritoneal dialysis catheter placed previously due to renal failure. The catheter functioned appropriately however she was unable to tolerate the peritoneal approach. She was referred back for removal of the catheter. The details of surgery were discussed with the patient which include bleeding, infection, pain, scar tissue, anesthetic risk, potential need for additional surgery procedure. She understands and would like to proceed. Description: The patient was taken the operating room and placed supine in the operating table. General anesthesia was performed. The abdomen was prepped with ChloraPrep and draped in a standard surgical manner. An incision was made at the site of the prior scar overlying the distal cuff. Cautery dissection was carried into the subcutaneous tissues. The distal cuff did not appear to be incorporated to any significant degree. The cuff and the distal coiled portion of the catheter were readily withdrawn without difficulty. The proximal cuff was then mobilized from the subcutaneous tissues with cautery. The catheter was then cut and completely removed. The catheter was then sent to pathology. Hemostasis was achieved with cautery. The subcutaneous tissue was approximated 3-0 Vicryl. The skin was closed with 4-0 Monocryl and a sterile dressing was applied. The patient tolerated the procedure well and was sent to the recovery room in stable condition. At the end the case all counts were correct. MIGUEL RAHMAN MD Apr 17, 2020 13:32
--- NOTE | 2020-04-17 13:34 | DISCH ---
DISCHARGE INSTRUCTIONS Condition on Discharge Condition on Discharge: Stable Activity After Discharge Activity Instructions for Disc: Activity as tolerated Diet after Discharge Diet after Discharge: Regular Wound Incision Care Wound/Incision Care: Other, see below (keep dressings clean and dry X 72 hours, may then remove and shower) Follow-Up Follow up with: Dr Rahman in 2 weeks, call for appointment [phone] MIGUEL RAHMAN MD Apr 17, 2020 13:34
[2020-04-17 13:50] VITALS: BP 126/49
--- NOTE | 2020-04-19 15:08 | PATHOLOGY ---
[facility] Accession Number: [id number] . 01 Material submitted: . peritoneum - PERITONEAL DIALYSIS CATHETER, GROSS ONLY . 01 Clinical history: . RENAL FAILURE . 02 Diagnosis: Segments of dialysis catheter, clinically from peritoneum (Gross only). . (JPM:roel; 04/19/2020) QMS 04/19/2020 1501 Local . 02 Electronically signed: . Venkata Austin MD, Pathologist NPI- [id number] . 01 Gross description: . The specimen is received fresh, labeled "Yesica Neal, peritoneal dialysis catheter" and consists of 2 segments of catheter having a longitudinal blue stripe, the longer 43.5 cm in length and ranging from 0.6-1.8 cm in diameter, and the shorter measuring 20 cm in length and 0.5 cm in diameter. A gross photo is taken. (SDY; 04/18/2020) SYU/SYU 04/19/2020 1135 Local . 02 Pathologist provided ICD-10: N19 . 02 CPT . 503877 Specimen Comment: A courtesy copy of this report has been sent to [phone] Specimen Comment: Report sent to Performed at: 01 [facility] [address], [place] [id number] MD Conrado Mina MD Phone: [phone] Performed at: 02 [facility] [address] [place], [place] [id number] MD Venkata Austin MD Phone: [phone]
== END 2020-04-17 14:26 | disposition home or self-care (01) ==
LOC: SURG 09:49
PROVIDERS: ATTEND Surgery
DX: I12.0 Hypertensive chronic kidney disease with stage 5 chronic kidney disease or end stage renal disease (principal); E11.22 Type 2 diabetes mellitus with diabetic chronic kidney disease; N18.6 End stage renal disease; I25.10 Atherosclerotic heart disease of native coronary artery without angina pectoris; E78.00 Pure hypercholesterolemia, unspecified; K21.9 Gastro-esophageal reflux disease without esophagitis; E66.9 Obesity, unspecified; E03.9 Hypothyroidism, unspecified; F41.9 Anxiety disorder, unspecified; F32.9 Major depressive disorder, single episode, unspecified; Z20.828 Contact with and (suspected) exposure to other viral communicable diseases; Z99.2 Dependence on renal dialysis; Z79.899 Other long term (current) drug therapy; Z98.890 Other specified postprocedural states; Z79.82 Long term (current) use of aspirin; Z79.4 Long term (current) use of insulin; Z68.28 Body mass index [BMI] 28.0-28.9, adult; Z82.49 Family history of ischemic heart disease and other diseases of the circulatory system; Z83.3 Family history of diabetes mellitus
CPT/HCPCS: 49422; 80048; 82962; 87426; C9803; J0690; J1100; J2405; J2704; J2710; J3490; J7120; U0003

== ENCOUNTER 2020-08-18 17:24 | Emergency (ER) | payer MEDICARE ==
[~2020-08-18] VITALS: Ht 157.5 cm; Wt 70.0 kg
[~2020-08-18 17:24] MED LIST changes: -BUPIVACAINE-EPI 0.5%-1:200000 MPF 30 ML VIAL. INJ ONE; -HYDROmorphone 2 MG/ML VIAL IV PRN; -ISOS30TA4 PO; +ISOS30TA68 PO; -IV NORMAL SALINE 1000ML BAG 1,000 ML IV SCH; -MORPHINE SULFATE 2 MG/ML VIAL. IV PRN; -PROCHLORPERAZINE 10 MG/2 ML VIAL. IV PRN; -fentaNYL PF VIAL 100 MCG/2 ML VIAL IV PRN
[2020-08-18 18:50] VITALS: BP 201/84
[2020-08-18] MEDS ORDERED: ONDA4TAB12 PO (18:50)
--- NOTE | 2020-08-18 18:50 | PHYS DOC ---
Past Medical History Past Medical History: Diabetes-Type II, High Cholesterol, Hypertension, Renal Failure, Other Additional Past Medical Histor: dialysis Past Surgical History: Other Smoking Status: Never Smoker Alcohol Use: None Drug Use: None General Adult EDM: Chief Complaint: OTHER COMPLAINTS HPI: HPI: Patient is a 84 year old [f__sex] who presents with [] Review of Systems: Review of Systems: Constitutional: Denies fever or chills. [] Eyes: Denies change in visual acuity. [] HENT: Denies nasal congestion or sore throat. [] Respiratory: Denies cough or shortness of breath. [] Cardiovascular: Denies chest pain or edema. [] GI: Denies abdominal pain, nausea, vomiting, bloody stools or diarrhea. [] : Denies dysuria. [] Musculoskeletal: Denies back pain or joint pain. [] Integument: Denies rash. [] Neurologic: Denies headache, focal weakness or sensory changes. [] Endocrine: Denies polyuria or polydipsia. [] Lymphatic: Denies swollen glands. [] Psychiatric: Denies depression or anxiety. [] Heart Score: Risk Factors: Risk Factors: DM, Current or recent (<one month) smoker, HTN, HLP, family history of CAD, obesity. Risk Scores: Score 0 - 3: 2.5% MACE over next 6 weeks - Discharge Home Score 4 - 6: 20.3% MACE over next 6 weeks - Admit for Clinical Observation Score 7 - 10: 72.7% MACE over next 6 weeks - Early Invasive Strategies Current Medications: Current Medications Medications (Trade) Dose Ordered Sig/[facility] Start Time Stop Time Status Last Admin Dose Admin Hydralazine HCl (Apresoline) 50 mg 1X ONCE 08/18/20 18:45 08/18/20 18:46 Allergies: Allergies: Allergies Coded Allergies Type Severity Reaction Last Updated Verified No Known Drug Allergies 04/17/20 No Physical Exam: PE: Constitutional: Well developed, well nourished, no acute distress, non-toxic appearance. [] HENT: Normocephalic, atraumatic, bilateral external ears normal, oropharynx moist, no oral exudates, nose normal. [] Eyes: PERRLA, EOMI, conjunctiva normal, no discharge. [] Neck: Normal range of motion, no tenderness, supple, no stridor. [] Cardiovascular:Heart rate regular rhythm, no murmur [] Lungs & Thorax: Bilateral breath sounds clear to auscultation [] Abdomen: Bowel sounds normal, soft, no tenderness, no masses, no pulsatile masses. [] Skin: Warm, dry, no erythema, no rash. [] Back: No tenderness, no CVA tenderness. [] Extremities: No tenderness, no cyanosis, no clubbing, ROM intact, no edema. [] Neurologic: Alert and oriented X 3, normal motor function, normal sensory function, no focal deficits noted. [] Psychologic: Affect normal, judgement normal, mood normal. [] Current Patient Data: Vital Signs: Vital Signs Date Time Temp Pulse Resp B/P (MAP) Pulse Ox O2 Delivery O2 Flow Rate FiO2 08/18/20 17:41 98.7 67 16 221/86 (131) 97 Room Air 98.7 EKG: EKG: @1739 NSR at 64bpm, QRS 108ms, QT/QTc 464/483ms Radiology/Procedures: Radiology/Procedures: [] Course & Med Decision Making: Course & Med Decision Making Pertinent Labs and Imaging studies reviewed. (See chart for details) [] Dragon Disclaimer: Lettuce Eat Disclaimer: This electronic medical record was generated, in whole or in part, using a voice recognition dictation system. Departure Departure Impression: Primary Impression: Post-vaccination reaction Qualified Codes: T88.1XXA - Other complications following immunization, not elsewhere classified, initial encounter Additional Impression: Hypertension Qualified Codes: I10 - Essential (primary) hypertension Disposition: 01 DC HOME SELF CARE/HOMELESS Condition: STABLE Referrals: CHANDA SWARTZ MD (PCP) Patient Instructions: Hypertension, Hltw-bp-Fgml, Immunization Reaction Additional Instructions: Please follow through with your "make-up" dialysis tomorrow as scheduled. Take Tylenol as needed for any further viral type symptoms associated with your vaccination reaction which has been very common with the COVID-19 vaccination. Watch your blood pressure and take blood pressure medications as prescribed. Scripts Ondansetron (ONDANSETRON ODT) 4 Mg Tab.rapdis 1 TAB PO PRN Q6-8HRS PRN for NAUSEA, #16 TAB Prov: RAYMOND CABALLERO DO 08/18/20 RAYMOND CABALLERO DO Aug 18, 2020 18:50
--- NOTE | 2020-08-18 20:09 | EKG ---
[facility] [address] [place] [address] Test Date: 2020-08-18 Test Time: 17:39:32 Pat Name: OTONIEL LOCKWOOD Department: Room: Gender: F Environmental Studies Program Director: TERRY ER : 1935 Requested By: RAYMOND CABALLERO Order Number: [id number] Reading MD: Measurements Intervals [place] Rate: 64 P: 90 MA: 228 QRS: -6 QRSD: 108 T: 26 QT: 464 QTc: 483 Interpretive Statements SINUS RHYTHM PROLONGED MA INTERVAL LEFTWARD AXIS PROLONGED QT ABNORMAL ECG RI6.02 No previous ECG available for comparison
== END 2020-08-18 19:28 | disposition home or self-care (01) ==
LOC: ER 17:24
DX: T88.1XXA Other complications following immunization, not elsewhere classified, initial encounter (principal); I10 Essential (primary) hypertension; E78.00 Pure hypercholesterolemia, unspecified; E11.22 Type 2 diabetes mellitus with diabetic chronic kidney disease; Z98.890 Other specified postprocedural states; X58.XXXA Exposure to other specified factors, initial encounter; Y93.89 Activity, other specified; Y92.89 Other specified places as the place of occurrence of the external cause; Y99.8 Other external cause status
CPT/HCPCS: 93005; 99283

== ENCOUNTER 2021-04-12 19:33 | Emergency (ER) | payer MEDICARE ==
[~2021-04-12] VITALS: Ht 157.5 cm; Wt 70.0 kg
[~2021-04-12 19:33] MED LIST changes: +AMLO-187 PO; +AMOX1TAB58 PO; +ASPI-630 PO; +CYAN25003 PO; +DOXY100C3 PO; +FAMO10TA26 PO; +FOLI1TAB30 PO; +FURO40TA4 PO; +HYDR-2769 PO; +INSU100I46 SQ; +LACT1CAP37 PO; +LIDO700A21 TP; +LOSA100T14 PO; +MULT-496 PO; -OMEP40CA45 PO; +OMEP40CA7 PO; +ONDA4TAB12 PO; +Tylenol PM PO
--- NOTE | 2021-04-12 19:44 | ED.ADGEN ---
Past Medical History Past Medical History: Diabetes-Type II, High Cholesterol, Hypertension, Renal Failure, Other Additional Past Medical Histor: dialysis Past Surgical History: Other Smoking Status: Never Smoker Alcohol Use: None Drug Use: None General Adult EDM: Chief Complaint: LACERATION/AVULSION HPI: HPI: Patient is a 85 year old female coming in from home via EMS after a fall. Patient states she fell asleep in her chair was getting up to use her walker to go in the other room when she fell. Patient denies any loss of consciousness, thinks she was just sleepy when she was trying get up with hospital fall. Take an aspirin daily. Was able to ambulate with EMS assistance. Patient is a Friday dialysis patient and states that they have been taking more more fluid off of her her visits which is causing her to have more falls Review of Systems: Review of Systems: All other systems within normal limits except for as noted in the HPI Current Medications: Current Medications Medications (Trade) Dose Ordered Sig/Jackeline Start Time Stop Time Status Last Admin Dose Admin Diphtheria/ Tetanus/Acell Pertussis (ADACEL TDap SYRINGE) 0.5 ml ONCE ONCE 04/12/21 23:00 04/12/21 23:01 DC 04/12/21 23:45 0.5 ML Lorazepam (Ativan Inj) 1 mg 1X ONCE 04/12/21 21:30 04/12/21 21:31 DC 04/12/21 21:07 1 MG Tetracaine/ Epinephrine/ Lidocaine (Let (Torh-Yemcajs-Zvqfc) Gel) 6 ml 1X ONCE 04/12/21 22:00 04/12/21 22:01 DC 04/12/21 22:00 6 ML Allergies: Allergies: Allergies Coded Allergies Type Severity Reaction Last Updated Verified No Known Drug Allergies 04/17/20 No Physical Exam: PE: Constitutional: Well developed, well nourished, no acute distress, non-toxic appearance. [] HENT: Normocephalic, atraumatic, bilateral external ears normal, nose normal. [] Eyes: PERRLA, conjunctiva normal, no discharge. [] Neck: No rigidity, supple, no stridor. [] Cardiovascular: Regular rate and rhythm, brisk cap refill [] Lungs & Thorax: Non labored symmetric respirations, no tachypnea or respiratory distress [] Abdomen: Soft, nondistended. Skin: Warm, dry, no erythema, no rash. Laceration to top of [] Back: Unremarkable Extremities: No deformities, range of motion grossly intact, no lower extremity edema [] Neurologic: Alert and oriented X 3, no focal deficits noted. [] Psychologic: Affect normal, judgement normal, mood normal. [] Current Patient Data: Labs: Laboratory Tests Test 04/12/21 20:45 04/12/21 21:46 White Blood Count 6.4 x10^3/uL (4.0-11.0) Red Blood Count 3.06 x10^6/uL (3.50-5.40) L Hemoglobin 10.2 g/dL (12.0-15.5) L Hematocrit 30.2 % (36.0-47.0) L Mean Corpuscular Volume 99 fL (79-100) Mean Corpuscular Hemoglobin 33 pg (25-35) Mean Corpuscular Hemoglobin Concent 34 g/dL (31-37) Red Cell Distribution Width 17.0 % (11.5-14.5) H Platelet Count 140 x10^3/uL (140-400) Neutrophils (%) (Auto) 79 % (31-73) H Lymphocytes (%) (Auto) 12 % (24-48) L Monocytes (%) (Auto) 8 % (0-9) Eosinophils (%) (Auto) 1 % (0-3) Basophils (%) (Auto) 0 % (0-3) Neutrophils # (Auto) 5.0 x10^3/uL (1.8-7.7) Lymphocytes # (Auto) 0.8 x10^3/uL (1.0-4.8) L Monocytes # (Auto) 0.5 x10^3/uL (0.0-1.1) Eosinophils # (Auto) 0.1 x10^3/uL (0.0-0.7) Basophils # (Auto) 0.0 x10^3/uL (0.0-0.2) Sodium Level 137 mmol/L (136-145) Potassium Level 5.4 mmol/L (3.5-5.1) H Chloride Level 98 mmol/L (98-107) Carbon Dioxide Level 30 mmol/L (21-32) Anion Gap 9 (6-14) Blood Urea Nitrogen 28 mg/dL (7-20) H Creatinine 4.6 mg/dL (0.6-1.0) H Estimated GFR (Cockcroft-Gault) 9.0 BUN/Creatinine Ratio 6 (6-20) Glucose Level 114 mg/dL (70-99) H Calcium Level 7.6 mg/dL (8.5-10.1) L Total Bilirubin 0.6 mg/dL (0.2-1.0) Aspartate Amino Transferase (AST) 32 U/L (15-37) Alanine Aminotransferase (ALT) 28 U/L (14-59) Alkaline Phosphatase 92 U/L (46-116) Troponin I High Sensitivity 42 ng/L (4-50) YV-Nte-N-Type Natriuretic Peptide > 89309 pg/mL (0-449) H Total Protein 5.5 g/dL (6.4-8.2) L Albumin 3.1 g/dL (3.4-5.0) L Albumin/Globulin Ratio 1.3 (1.0-1.7) Urine Collection Type U cath Urine Color Yellow Urine Clarity Clear Urine pH 8.0 (<5.0-8.0) Urine Specific [place] 1.010 (1.000-1.030) Urine Protein 100 mg/dL (NEG-TRACE) Urine Glucose (UA) Negative mg/dL (NEG) Urine Ketones (Stick) Negative mg/dL (NEG) Urine Blood Trace (NEG) Urine Nitrite Negative (NEG) Urine Bilirubin Negative (NEG) Urine Urobilinogen Dipstick 0.2 mg/dL (0.2 mg/dL) Urine Leukocyte Esterase Negative (NEG) Urine RBC 0 /HPF (0-2) Urine WBC Occ /HPF (0-4) Urine Squamous Epithelial Cells Few /LPF Urine Renal Epithelial Cells Few /LPF Urine Bacteria 0 /HPF (0-FEW) Laboratory Tests 04/12/21 20:45 Laboratory Tests 04/12/21 20:45 Vital Signs: Vital Signs Date Time Temp Pulse Resp B/P (MAP) Pulse Ox O2 Delivery O2 Flow Rate FiO2 04/12/21 19:35 98.8 64 18 193/80 (117) 98 98.8 EKG: EKG: Sinus rhythm, heart rate [address] elevation or depression, no ectopy [] Heart Score: C/O Chest Pain: No Risk Factors: Risk Factors: DM, Current or recent (<one month) smoker, HTN, HLP, family history of CAD, obesity. Risk Scores: Score 0 - 3: 2.5% MACE over next 6 weeks - Discharge Home Score 4 - 6: 20.3% MACE over next 6 weeks - Admit for Clinical Observation Score 7 - 10: 72.7% MACE over next 6 weeks - Early Invasive Strategies Radiology/Procedures: Radiology/Procedures: [facility] [address] [place] [address] IMAGING REPORT Signed PATIENT: OTONIEL LOCKWOOD LACCOUNT: [id number] : 1935 LOCATION: ER AGE: 85 SEX: F EXAM STATUS: PRE ER ORD. PHYSICIAN: ZBIGNIEW COLE MD REASON: fall, HEAD INJURY [phone] PROCEDURE: CT HEAD AND CERVICAL SPINE WO CT HEAD AND C-SPINE WO Date: 04/12/2021 7:49 PM Clinical Indication: Reason: fall, HEAD INJURY [phone] / Spl. Instructions: / History: Comparison: None. Technique: 5 mm axial tomographic images were obtained of the head without contrast. These were viewed on brain and bone windows. Noncontrast CT of the cervical spine was performed. Sagittal and coronal reformats were performed and evaluated. One or more of the following dose reduction techniques were utilized: Automated exposure control (AEC), Adjustment of mA and/or kV according to patient size, Use of iterative reconstruction technique such as ASiR, CT scan done according to ALARA and image gently/image wisely HEAD FINDINGS: Mild generalized cerebral and cerebellar volume loss. Mild nonspecific pe riventricular hypoattenuation, most commonly seen with chronic small vessel ischemic disease. No intra- or extra-axial mass or fluid collection. No acute hemorrhage. The ventricles are normal in size, shape, and morphology. The clark-white matter junction is normal. The basilar cisterns are patent. The visualized paranasal sinuses are normal. The visualized portions of the orbits and globes are normal. The mastoid air cells are clear. No aggressive osseous lesion or fracture. CERVICAL SPINE FINDINGS: The cervical spine is normally aligned. No acute fracture. No aggressive lytic or blastic osseous lesions. Moderate multilevel degenerative disc space height loss. Multilevel mild and mod erate spinal canal stenosis secondary to disc protrusions and marginal osteophytes. Multilevel mild neuroforaminal narrowing secondary to uncovertebral arthrosis. Multilevel mild facet arthrosis. The thyroid gland is normal. No cervical lymphadenopathy. Bilateral carotid atherosclerosis. The visualized aerodigestive tract is normal. Partially visualized bilateral pleural effusions. IMPRESSION: 1. No acute intracranial process. Left scalp swelling. 2. No acute cervical spine fracture. 3. Partially visualized bilateral pleural effusions. Electronically signed by: Radha Gamboa MD (04/12/2021 8:46 PM) [facility] DICTATED and SIGNED BY: RADHA GAMBOA MD DATE: 04/12/[id number] 0 [] Impression: Patient was prepped and draped in normal fashion, wound irrigated and cleansed with normal saline. The 7 cm wound was anesthetized with LET. Depth of wound was examined and [] foreign bodies found. Wound was approximated with 18. Wound was [] dressed a nonadherent bandage. Course & Med Decision Making: Course & Med Decision Making Pertinent Labs and Imaging studies reviewed. (See chart for details) Patient given instructions for return precautions and follow-up with possible wound care. [] Dragon Disclaimer: Dragon Disclaimer: This electronic medical record was generated, in whole or in part, using a voice recognition dictation system. Departure Departure Impression: Primary Impression: Fall Disposition: HOME / SELF CARE / HOMELESS Condition: GUARDED Referrals: CHANDA SWARTZ MD (PCP) Patient Instructions: Staple Wound Closure, [id number] Additional Instructions: Follow-up with primary care provider and keep ice on the wound monitor for infection. Can follow-up with wound clinic if not healing properly. Return to emergency department for any fevers, change in mental status, continued bleeding, or other concerns. ZBIGNIEW COLE MD Apr 12, 2021 19:44
--- NOTE | 2021-04-12 20:49 | RAD ---
CT HEAD AND C-SPINE WO Date: 04/12/2021 7:49 PM Clinical Indication: Reason: fall, HEAD INJURY [phone] / Spl. Instructions: / History: Comparison: None. Technique: 5 mm axial tomographic images were obtained of the head without contrast. These were view ed on brain and bone windows. Noncontrast CT of the cervical spine was performed. Sagittal and mares l reformats were performed and evaluated. One or more of the following dose reduction techniques were utilized: Automated exposure control (AEC), Adjustment of mA and/or kV according to patient size, Us e of iterative reconstruction technique such as ASiR, CT scan done according to ALARA and image gentl y/image wisely HEAD FINDINGS: Mild generalized cerebral and cerebellar volume loss. Mild nonspecific periventricular hypoattenuatio n, most commonly seen with chronic small vessel ischemic disease. No intra- or extra-axial mass or fluid collection. No acute hemorrhage. The ventricles are normal in size, shape, and morphology. The clark-white matter junction is normal. The basilar cisterns are paten t. The visualized paranasal sinuses are normal. The visualized portions of the orbits and globes are no rmal. The mastoid air cells are clear. No aggressive osseous lesion or fracture. CERVICAL SPINE FINDINGS: The cervical spine is normally aligned. No acute fracture. No aggressive lytic or blastic osseous les ions. Moderate multilevel degenerative disc space height loss. Multilevel mild and moderate spinal canal st enosis secondary to disc protrusions and marginal osteophytes. Multilevel mild neuroforaminal narrowi ng secondary to uncovertebral arthrosis. Multilevel mild facet arthrosis. The thyroid gland is normal. No cervical lymphadenopathy. Bilateral carotid atherosclerosis. The visu alized aerodigestive tract is normal. Partially visualized bilateral pleural effusions. IMPRESSION: 1. No acute intracranial process. Left scalp swelling. 2. No acute cervical spine fracture. 3. Partially visualized bilateral pleural effusions. Electronically signed by: Doc Gamboa MD (04/12/2021 8:46 PM) [facility]
[2021-04-12 21:01] LABS: BASO % 0 % (0-3); EOS # 0.1 x10^3/uL (0.0-0.7); EOS % 1 % (0-3); HEMATOCRIT 30.2 % (36.0-47.0); HEMOGLOBIN 10.2 g/dL (12.0-15.5); LYMPH # 0.8 x10^3/uL (1.0-4.8); LYMPH % 12 % (24-48); MEAN CORPUSCULAR HEMOGLOBIN 33 pg (25-35); MEAN CORPUSCULAR HGB CONC 34 g/dL (31-37); MEAN CORPUSCULAR VOLUME 99 fL (79-100); MONO # 0.5 x10^3/uL (0.0-1.1); MONO % 8 % (0-9); NEUT % 79 % (31-73); PLATELET COUNT 140 x10^3/uL (140-400); RED BLOOD COUNT 3.06 x10^6/uL (3.50-5.40); WHITE BLOOD COUNT 6.4 x10^3/uL (4.0-11.0)
[2021-04-12 21:12] LABS: CALCIUM 7.6 mg/dL (8.5-10.1); CREATININE 4.6 mg/dL (0.6-1.0)
[2021-04-12 21:14] LABS: POTASSIUM 5.4 mmol/L (3.5-5.1)
[2021-04-12 21:25] LABS: ALBUMIN 3.1 g/dL (3.4-5.0); ALBUMIN/GLOBULIN RATIO 1.3 (1.0-1.7); TOTAL BILIRUBIN 0.6 mg/dL (0.2-1.0); TOTAL PROTEIN 5.5 g/dL (6.4-8.2)
[2021-04-12 21:53] LABS: BILIRUBIN,URINE NEGATIVE (NEG); CLARITY,URINE CLEAR; COLOR,URINE YELLOW; NITRITE,URINE NEGATIVE (NEG); PROTEIN,URINE 100 mg/dL (NEG-TRACE); UROBILINOGEN,URINE 0.2 mg/dL (0.2 mg/dL)
[2021-04-12 21:59] LABS: BACTERIA,URINE 0 /HPF (0-FEW); RBC,URINE 0 /HPF (0-2); WBC,URINE OCC /HPF (0-4)
[2021-04-12] MEDS ORDERED: LIDOCAINE/EPI/TETRACAINE TOPICAL GEL 3 ML. TP ONE (22:00)
[2021-04-12] MEDS ORDERED: DIPH,PERTUSS(ACELL),TET VAC/PF 0.5 ML SYRINGE. VAX IM ONE (23:00)
[2021-04-12 23:11] VITALS: BP 152/64
--- NOTE | 2021-04-13 03:16 | EKG ---
[facility] [address] [place] [address] Test Date: 2021-04-12 Test Time: 19:56:10 Pat Name: OTONIEL LOCKWOOD Department: Room: Gender: F [employer]: : 1935 Requested By: ZBGINIEW COLE Order Number: [id number] Reading MD: David Juarez MD Measurements Intervals [place] Rate: 65 P: IN: QRS: -1 QRSD: 88 T: 17 QT: 440 QTc: 463 Interpretive Statements SR NON-SPECIFIC ST/T CHANGES Electronically Signed On 04-15-2021 20:55:18 MACHINE FIXER by David Juarez MD
== END 2021-04-12 23:55 | disposition home or self-care (01) ==
LOC: ER 19:33
DX: S01.01XA Laceration without foreign body of scalp, initial encounter (principal); E78.00 Pure hypercholesterolemia, unspecified; I12.9 Hypertensive chronic kidney disease with stage 1 through stage 4 chronic kidney disease, or unspecified chronic kidney disease; N18.9 Chronic kidney disease, unspecified; E11.22 Type 2 diabetes mellitus with diabetic chronic kidney disease; W18.39XA Other fall on same level, initial encounter; Y93.89 Activity, other specified; Y92.89 Other specified places as the place of occurrence of the external cause; Y99.8 Other external cause status
CPT/HCPCS: 12002; 36415; 70450; 72125; 80053; 81001; 83880; 84484; 85025; 90471; 90715; 93005; 96372; 99285; J2060